=== PATIENT | female | born 1990 | race Caucasian/White ===

== ENCOUNTER 2021-03-29 15:50 | Emergency (ER) | payer OTHER, SELFPAY ==
[2021-03-29 19:12] VITALS: BP 118/70; PULSE 63; RESP 18; TEMP 37.1; O2SAT 97
[2021-03-29 19:21] LABS: MANUAL DIFF FLAG NO
[2021-03-29 19:23] LABS: Basophils Absolute Auto 0.1 X10*3/uL (0.0-0.2); Basophils Percent Auto 0.5 % (0-2); Eosinophils Absolute Auto 0.1 X10*3/uL (0.0-0.4); Hematocrit 36.5 % (37-47); Hemoglobin 12.5 g/dl (12.0-16.0); Imm Gran Abs Auto 0.03 X10*3/uL (0.00-0.03); Imm Gran Pct Auto 0.3 % (0.0-0.4); Lymphocytes Percent Auto 40.5 % (20-40); Mean Corpuscular HGB Conc 34.2 g/dl (31.0-35.0); Mean Corpuscular Volume 84.7 fL (80-98); Mean Platelet Volume 10.2 fL (9.4-12.3); Monocytes Absolute Auto 0.5 X10*3/uL (0.1-1.2); Monocytes Percent Auto 5.3 % (2-11); Neutrophils Absolute Auto 5.2 X10*3/uL (2.0-8.3); Neutrophils Percent Auto 52.4 % (45-73); Platelet Count 262 X10*3/uL (160-400); Red Blood Count 4.31 X10*6/uL (4.20-5.50); Red Cell Distribution Width 12.8 % (11.0-16.0)
[2021-03-29 19:25] LABS: Appearance Urine HAZY; Color Urine YELLOW; Glucose Urine UA NEG (NEG); Leukocyte Esterase Urine 2+ (NEG); Nitrite Urine NEG (NEG); Specific Gravity - Urine 1.015 (1.005-1.025); UACC Culture Trigger YES; Urine Blood NEG (NEG); Urine Ketones NEG (NEG); Urine Protein NEG (NEG-TRACE)
[2021-03-29 19:47] VITALS: BP 119/54; PULSE 62; RESP 16; TEMP 36.8; O2SAT 95; BMI 39.4
[2021-03-29 19:49] LABS: Alanine Aminotransferase 14 U/L (0-31); Albumin Level 4.3 g/dL (3.5-5.0); Alkaline Phosphatase 57 U/L (39-117); Anion Gap 12 (12-20); Aspartate Amino Transferase 12 U/L (5-31); Bilirubin Total < 0.2 mg/dL (0.0-1.0); Blood Urea Nitrogen 9 mg/dL (9-16); Calcium 9.5 mg/dL (8.4-10.2); Carbon Dioxide 26 mmol/L (22-29); Chloride 104 mmol/L (96-108); Estimated Glomerular Filt Rate > 60; Glucose Random 91 mg/dL (60-115); Potassium 4.2 mmol/L (3.3-5.1); Sodium 138 mmol/L (135-145); Total Protein 7.1 g/dL (6.5-8.0)
[2021-03-29 20:08] LABS: HCG Quantitative 20515 mIU/mL
[2021-03-29 21:42] LABS: Amorphous Sediment Urine 1+ /LPF; Bacteria Urine TRACE /LPF; Squamous Epithelial Cell Urine 1+ /LPF
== END 2021-03-29 23:50 | disposition left against medical advice (07) ==
PROVIDERS: Emergency Provider Emergency Medicine; PCP Internal Medicine
DX: R25.2 Cramp and spasm (principal)
CPT/HCPCS: 36415; 80053; 81001; 84702; 85025; 87086; 99282; 99283

== ENCOUNTER 2021-04-02 12:02 | Emergency (ER) | payer OTHER, SELFPAY ==
--- NOTE | ~2021-04-02 | US_ITS ---
EXAMINATION: US OB CLINICAL INFORMATION: Lower abdominal pain. LMP unknown. COMPARISON: 06/30/2012 TECHNIQUE: Sonographic imaging of the pelvis was performed using a transabdominal transducer. FINDINGS: The anteverted, anteflexed measures 10.4 x 6.5 x 7.1 cm (cervix to fundus x AP x transverse dimensions). A single gestational sac is observed within the endometrial cavity. The heart rate is 172 bpm. The estimated crown rump length is 1.98 cm, corresponding to a gestational age of 8 weeks, 4 days, and estimated date of delivery of 11/08/2021. A normal yolk sac is seen. There appears to be a small crescentic subchorionic bleed along the posterosuperior margin of the gestational sac. No pelvic free fluid. The ovaries have normal size and echotexture. No evidence of ectopic . The right ovary measures 3.4 x 2.3 x 2.2 cm and left ovary 3.5 x 1.8 x 2.1 cm. US/US OB <= 14 wk fetus add gest IMPRESSION: * There is a single viable intrauterine gestation. The estimated gestational age is 8 weeks, 4 days with estimated date of delivery of 11/08/2021. * Small subchorionic hemorrhage is noted. * The ovaries are sonographically normal. * No pelvic free fluid.
[2021-04-02 12:07] VITALS: BP 120/70; PULSE 85; RESP 18; TEMP 36.5; O2SAT 99; BMI 39.4
--- NOTE | 2021-04-02 12:43 | ED.ABDPAIN ---
HPI - Abdominal Pain General Chief Complaint: Abdominal Pain Stated Complaint: SHARP PAIN R SIDE Time Seen by Provider: 04/02/21 12:43 Source: patient Mode of arrival: ambulatory Limitations: no limitations History of Present Illness MD elicited complaint: abdominal pain Pertinent past history: other (+ preg test one month ago has not seen OB yet) Onset (ago): day(s) (5) Pain Consistency: intermittent and now resolved Location: R flank and suprapubic Severity: mild Quality: stabbing Radiation: none Migration to: no migration Exacerbating factors: nothing Relieving factors: nothing Associated symptoms: denies other symptoms Related Data Allergies Allergy/AdvReac Type Severity Reaction Status Date / Time No Known Allergies Allergy Verified 03/29/21 19:47 Review of Systems Review of Systems Constitutional : No Weight loss, No Fever, No Chills ENT/Mouth : No sore throat, No Rhinorrhea Eyes: No Swelling, No Redness Cardiovascular : No Chest Pain, No SOB, NoEdema Respiratory : No Cough, No Sputum, No Wheezing Gastrointestinal : no Nausea, no Vomiting, no Diarrhea, positive abdominal Pain, No Hematochezia, No Melena Genitourinary : No Dysuria, No Urinary Frequency, No Hematuria, No Urgency Musculoskeletal : No joint pain, No Myalgias, No Joint Swelling Skin : No Skin Lesions, No rash Neuro : No Weakness, No Numbness, No Dizziness, No Headache Psych : No Anxiety/Panic, No Depression Heme/Lymph: No Bruising, No Lymphadenopathy Endocrine : No Polyuria, No Polydipsia All other systems reviewed and are negative. Physical Exam Vital Signs: Vital Signs: Last Vital Signs Temp 97.7 F 04/02/21 12:07 Pulse 85 04/02/21 12:07 Resp 18 04/02/21 12:07 BP 120/70 04/02/21 12:07 Pulse Ox 99 04/02/21 12:07 Body Mass Index 39.4 Appearance: Alert. Oriented X3. No acute distress. Eyes: Pupils equal, round and reactive to light. ENT: Pharynx normal. Neck: Normal inspection. Neck supple. CVS: Normal heart rate and rhythm. Pulses normal. Respiratory: No respiratory distress. Breath sounds normal. Abdomen: Soft and nontender. no ttp at all to palpation Skin: Skin warm and dry. Normal skin color. Normal skin turgor. Extremities: No lower extremity edema. No calf ttp Neuro: Oriented X 3. No motor deficit. No sensory deficit. Course Course Course Narrative: patient has to leave due to childcare states she cannot give urine at this time MDM - Abdominal Pain MDM Narrative Medical decision making narrative: 30 yo female here with c/o intermittent abdominal pain since Wednesday she has a nontender abdomen at this time - no other GI or symptoms. She notes a positive test 1 month ago had labs and + quant on 03/29 but LWT at this time repeat labs, UA, US to evaluate given the lack of abdominal ttp at this time I do not suspect cholecystitis or appendicitis. Dispo per resutls and findigns. Lab Data Result diagrams: 04/02/21 13:03 04/02/21 13:03 Labs: Lab Results 04/02/21 04/02/21 Range/Units 13:03 13:03 WBC 7.3 (4.8-10.8) X10*3/uL RBC 4.22 (4.20-5.50) X10*6/uL Hgb 12.3 (12.0-16.0) g/dl Hct 35.6 L (37-47) % MCV 84.4 (80-98) fL MCH 29.1 (27.0-33.0) pg MCHC 34.6 (31.0-35.0) g/dl RDW 12.8 (11.0-16.0) % Plt Count 235 (160-400) X10*3/uL MPV 9.9 (9.4-12.3) fL Immature Gran % (Auto) 0.1 (0.0-0.4) % Neut % (Auto) 62.3 (45-73) % Lymph % (Auto) 32.1 (20-40) % [place] % (Auto) 4.5 (2-11) % Eos % (Auto) 0.7 (0-4) % Baso % (Auto) 0.3 (0-2) % Lymph # (Auto) 2.4 (1.2-4.9) X10*3/uL [place] # (Auto) 0.3 (0.1-1.2) X10*3/uL Eos # (Auto) 0.1 (0.0-0.4) X10*3/uL Baso # (Auto) 0.0 (0.0-0.2) X10*3/uL Abs Immat Gran (auto) 0.01 (0.00-0.03) X10*3/uL Absolute Neuts (auto) 4.6 (2.0-8.3) X10*3/uL Absolute Nucleated RBC 0.000 (0.0-0.012) X10*3/uL Nucleated RBC % (auto) 0.0 (0.0-0.2) /100WBC Sodium 137 (135-145) mmol/L Potassium 3.7 (3.3-5.1) mmol/L Chloride 105 (96-108) mmol/L Carbon Dioxide 25 (22-29) mmol/L Anion Gap 11 L (12-20) BUN 7 L (9-16) mg/dL Creatinine 0.62 (0.5-1.4) mg/dL Estim Creat Clear Calc 156.1 Estimated GFR > 60 Random Glucose 91 (60-115) mg/dL Calcium 8.9 D (8.4-10.2) mg/dL Magnesium 2.2 (1.6-2.6) mg/dL Total Bilirubin 0.3 (0.0-1.0) mg/dL Direct Bilirubin 0.2 (0.0-0.5) mg/dL AST 13 (5-31) U/L ALT 15 (0-31) U/L Alkaline Phosphatase 60 (39-117) U/L Total Protein 6.9 (6.5-8.0) g/dL Albumin 4.3 (3.5-5.0) g/dL Lipase 10 (8-78) U/L Discharge Plan Discharge Clinical Impression: Abdominal pain Qualifiers: Abdominal location: lower abdomen, unspecified Qualified Code(s): R10.30 - Lower abdominal pain, unspecified Qualifiers: Weeks of gestation: 8 weeks Qualified Code(s): Z3A.08 - 8 weeks gestation of Patient Disposition: Home, Self-Care Instructions: Abdominal Pain in (ED), Subchorionic Hemorrhage (ED) Additional Instructions: return to ED for any worsening symptoms or concerns PLEASE FIND OB SOON POSSIBLE *? There is a single viable intrauterine gestation. The estimated gestational age is 8 weeks, 4 days with estimated date of delivery of 11/08/2021. *? Small subchorionic hemorrhage is noted. *? The ovaries are sonographically normal. *? No pelvic free fluid.? Stand Alone Forms: Work/School Release FORMERLY [facility], [facility]–1983 Past Medical History Attestation statement: The following information was validated with the patient. Medical History No known health problems Social History Social History (Updated 04/02/21 @ 13:02 by Sylwia Dougherty DO) Alcohol intake: never Patient Tobacco Use Status: Current everyday Tobacco user Use of substances other than those prescribed or required for medical reasons: No Advance Directives: No Advance Directives Information Provided: No Patient : Yes
[2021-04-02 13:08] LABS: MANUAL DIFF FLAG NO
[2021-04-02 13:11] LABS: Basophils Percent Auto 0.3 % (0-2); Eosinophils Absolute Auto 0.1 X10*3/uL (0.0-0.4); Eosinophils Percent Auto 0.7 % (0-4); Hematocrit 35.6 % (37-47); Hemoglobin 12.3 g/dl (12.0-16.0); Imm Gran Abs Auto 0.01 X10*3/uL (0.00-0.03); Imm Gran Pct Auto 0.1 % (0.0-0.4); Lymphocytes Absolute Auto 2.4 X10*3/uL (1.2-4.9); Lymphocytes Percent Auto 32.1 % (20-40); Mean Corpuscular HGB Conc 34.6 g/dl (31.0-35.0); Mean Corpuscular Hemoglobin 29.1 pg (27.0-33.0); Mean Corpuscular Volume 84.4 fL (80-98); Mean Platelet Volume 9.9 fL (9.4-12.3); Monocytes Absolute Auto 0.3 X10*3/uL (0.1-1.2); Monocytes Percent Auto 4.5 % (2-11); Neutrophils Absolute Auto 4.6 X10*3/uL (2.0-8.3); Neutrophils Percent Auto 62.3 % (45-73); Platelet Count 235 X10*3/uL (160-400); Red Blood Count 4.22 X10*6/uL (4.20-5.50); Red Cell Distribution Width 12.8 % (11.0-16.0); White Blood Count 7.3 X10*3/uL (4.8-10.8)
[2021-04-02 13:34] LABS: Alanine Aminotransferase 15 U/L (0-31); Albumin Level 4.3 g/dL (3.5-5.0); Alkaline Phosphatase 60 U/L (39-117); Anion Gap 11 (12-20); Aspartate Amino Transferase 13 U/L (5-31); Bilirubin Direct 0.2 mg/dL (0.0-0.5); Bilirubin Total 0.3 mg/dL (0.0-1.0); Blood Urea Nitrogen 7 mg/dL (9-16); Calcium 8.9 mg/dL (8.4-10.2); Carbon Dioxide 25 mmol/L (22-29); Chloride 105 mmol/L (96-108); Creatinine Clr Calc Pharmacy 156.1; Estimated Glomerular Filt Rate > 60; Glucose Random 91 mg/dL (60-115); Lipase 10 U/L (8-78); Magnesium 2.2 mg/dL (1.6-2.6); Potassium 3.7 mmol/L (3.3-5.1); Sodium 137 mmol/L (135-145); Total Protein 6.9 g/dL (6.5-8.0)
== END 2021-04-02 14:06 | disposition home or self-care (01) ==
PROVIDERS: Emergency Provider Emergency Medicine; PCP Internal Medicine
DX: O26.891 Other specified pregnancy related conditions, first trimester (principal); R10.30 Lower abdominal pain, unspecified; Z3A.08 8 weeks gestation of pregnancy
CPT/HCPCS: 36415; 76801; 76802; 80048; 80076; 83690; 83735; 85025; 99284

== ENCOUNTER 2021-05-12 14:47 | Emergency (ER) | payer OTHER, SELFPAY ==
[2021-05-12 15:23] VITALS: BP 120/61; PULSE 72; RESP 18; TEMP 36.7; O2SAT 100; BMI 38.6
[2021-05-12 15:47] LABS: Appearance Urine CLEAR; Color Urine YELLOW; Glucose Urine UA NEG (NEG); Leukocyte Esterase Urine 1+ (NEG); Nitrite Urine NEG (NEG); Specific Gravity - Urine <= 1.005 (1.005-1.025); UACC Culture Trigger YES; Urine Blood NEG (NEG); Urine Ketones 15 MG/DL (NEG); Urine Protein NEG (NEG-TRACE)
--- NOTE | 2021-05-12 16:16 | ED_ITS ---
HPI - General Adult General Chief complaint: General Medical Stated complaint: uti - Time Seen by Provider: 05/12/21 16:08 Source: patient Mode of arrival: ambulatory Limitations: no limitations History of Present Illness HPI narrative: Patient comes emergency room complaining of dysuria for 2-3 days. Patient denies flank pain, no fever, no hematuria. Patient is a gestational age of 15 weeks. Otherwise, patient is asymptomatic. Related Data Previous Rx's Medication Instructions Recorded nitrofurantoin 100 mg PO Q12H 7 Days #14 cap 05/12/21 monohydrate/macrocrystals 100 mg capsule (Macrobid) Allergies Allergy/AdvReac Type Severity Reaction Status Date / Time No Known Allergies Allergy Verified 05/12/21 15:23 Review of Systems Review of Systems: Constitutional : No Weight loss, No Fever, No Chills, No Night Sweats, No Fatigue, No Malaise ENT/Mouth : No Hearing loss, No Ear Pain, No Nasal Congestion, No Sinus Pain, No Hoarseness, No sore throat, No Rhinorrhea, No Swallowing Difficulty Eyes: No Eye Pain, No Swelling, No Redness, No Foreign Body, No Discharge, No Vision Changes Cardiovascular : No Chest Pain, No SOB, No Dyspnea on Exertion, No Orthopnea, No Edema, No Palpitations Respiratory : No Cough, No Sputum, No Wheezing, No Smoke Exposure, No Dyspnea Gastrointestinal : No Nausea, No Vomiting, No Diarrhea, No Constipation, No abdominal Pain, No Hematochezia, No Melena Genitourinary : no irregular bleeding, complaining of Dysuria, No Urinary Frequency, No Hematuria, No Urinary Incontinence, No Urgency, No Flank Pain, No Urinary Flow Changes, No Hesitancy Musculoskeletal : No joint pain, No Myalgias, No Joint Swelling Skin : No Skin Lesions, No rash Neuro : No Weakness, No Numbness, No Paresthesias, No Loss of Consciousness, No Dizziness, No Headache Psych : No Anxiety/Panic, No Depression, No SI/HI/AH/VH, No Social Issues, Heme/Lymph: No Bruising, No Bleeding,No Lymphadenopathy Endocrine : No Polyuria, No Polydipsia, No Temperature Intolerance PMFSH Past Medical History Medical History COVID-19 Social History Social History (Updated 10/20/21 @ 13:02 by Sylwia Dougherty DO) Alcohol intake: never Patient Tobacco Use Status: Current everyday Tobacco user Advance Directives: No Advance Directives Information Provided: No Patient : Yes Physical Exam Vital Signs: Vital Signs: Last Vital Signs Temp 98.1 F 05/12/21 15:23 Pulse 72 05/12/21 15:23 Resp 18 05/12/21 15:23 BP 120/61 05/12/21 15:23 Pulse Ox 100 05/12/21 15:23 Body Mass Index 38.6 Const: Other: Appearance: Alert. Oriented X3. No acute distress. Eyes: Pupils equal, round and reactive to light. ENT: Pharynx normal. Neck: Normal inspection. Neck supple. No lymph nodes noted. No crepitus CVS: Normal heart rate and rhythm. Pulses normal. Normal S1 and S2 Respiratory: No respiratory distress. Breath sounds normal. No Wheezing. No rales Abdomen: Soft and nontender. No rigidity. No distention. Back: No flank pain Skin: Skin warm and dry. Normal skin color. Normal skin turgor. Extremities: No lower extremity edema. No lower extremity edema. No Lacerations. No Rash Neuro: Oriented X 3. No motor deficit. No sensory deficit. Moving all extermities. No slurred speech. Course Course Course Narrative: Patient's urine is positive for UTI. Patient was given the 1st dose of Macrobid in the emergency room. Patient instructed to follow-up with her primary care physician. Patient will need repeat urinalysis to ensure that the UTI cleared Medical Decision Making Lab Data Labs: Lab Results 05/12/21 Range/Units 15:37 Urine Color YELLOW Urine Appearance CLEAR Urine pH 6.0 (5.0-8.0) Ur Specific [place] <= 1.005 (1.005-1.025) Urine Protein NEG (NEG-TRACE) MG/DL Urine Glucose (UA) NEG (NEG) MG/DL Urine Ketones 15 (NEG) MG/DL Urine Blood NEG (NEG) Urine Nitrite NEG (NEG) Ur Leukocyte Esterase 1+ H (NEG) Discharge Plan Discharge Clinical Impression: UTI (urinary tract infection) during Qualifiers: Trimester: second trimester Qualified Code(s): O23.42 - Unspecified infection of urinary tract in , second trimester Patient Disposition: Home, Self-Care Instructions: Urinary Tract Infection in (ED) Additional Instructions: Please follow-up with your primary care physician tomorrow. If you have any worsening or new symptoms, please return to the emergency room or call 911 Prescriptions: New nitrofurantoin monohyd/m-cryst [Macrobid] 100 mg capsule 100 mg PO Q12H 7 Days Qty: 14 RF: 0
[2021-05-12 16:17] LABS: Bacteria Urine TRACE /LPF; Squamous Epithelial Cell Urine 2+ /LPF
[2021-05-12] MEDS: Nitrofurantoin Monohyd/M-Cryst 100 MG CAPSULE PO (16:37)
== END 2021-05-12 16:40 | disposition home or self-care (01) ==
PROVIDERS: Emergency Provider Emergency Medicine
DX: O23.42 Unspecified infection of urinary tract in pregnancy, second trimester (principal); Z3A.15 15 weeks gestation of pregnancy; Z79.899 Other long term (current) drug therapy
CPT/HCPCS: 81001; 87086; 99283

== ENCOUNTER 2022-01-26 05:18 | Observation (INO) | payer OTHER, SELFPAY ==
--- NOTE | ~2022-01-26 | CT_ITS ---
EXAMINATION: CT HEAD WITHOUT CONTRAST CLINICAL INFORMATION: Altered mental status. Seizure. COMPARISON: 05/06/2011 TECHNIQUE: Contiguous axial imaging was performed from the skull base to vertex without intravenous contrast. This CT examination was performed using dose optimization techniques as appropriate, variously including the following: * Automated exposure control * Adjustment of mA and/or kV according to patient size (this includes techniques or standardized protocols for targeted exams where dose is matched to indication/reason for exam; i.e. extremities or head) Use of iterative reconstruction technique DLP: 665 mGy-cm. FINDINGS: There is no evidence of acute intracranial hemorrhage or territorial infarction. No abnormal mass effect or midline shift is seen. Silverman to white matter differentiation is well preserved. No extra-axial fluid collections are identified. No hydrocephalus. No significant volume loss. There is no abnormal attenuation within the brain parenchyma. The osseous structures and soft tissues are normal. Mild mucoperiosteal thickening of the right maxillary sinus. The mastoid air cells and visualized portions of the paranasal sinuses are otherwise well aerated. CT/CT head/brain wo con IMPRESSION: No acute intracranial pathology.
[2022-01-26 05:28] VITALS: BP 109/58; BP 170/88; PULSE 62; PULSE 78; RESP 18; TEMP 36.8; O2SAT 94; O2SAT 99; BMI 36.6
[2022-01-26 05:40] VITALS: BP 109/58; PULSE 64; RESP 16; TEMP 36.8; O2SAT 95
--- NOTE | 2022-01-26 05:44 | ECG_ITS ---
Test Reason : seizure Blood Pressure : / mmHG Vent. Rate : 073 BPM Atrial Rate : 073 BPM P-R Int : 156 ms QRS Dur : 092 ms QT Int : 394 ms P-R-T Axes : -12 -26 -03 degrees QTc Int : 434 ms Normal sinus rhythm Normal ECG No previous ECGs available Referred By: Sandi Toledo Electronically Signed By:AZAM LEE
--- NOTE | 2022-01-26 05:46 | ED.GENADULT ---
HPI - General Adult General Chief complaint: Seizure Stated complaint: AMS Time Seen by Provider: 01/26/22 05:37 Source: patient and EMS Mode of arrival: EMS Limitations: altered mental status History of Present Illness HPI narrative: Patient comes to the emergency room via EMS for altered mental status. Patient's called today because the patient was found on the floor. Patient states that she does not remember what happened. Patient is still a bit confused, seems postictal. Patient states that she remembers going to the bathroom around 330 in the morning and then she does not remember anything else. Patient reports that she has never had any seizures, denies using alcohol or drugs. Patient denies any pain Related Data Previous Rx's Medication Instructions Recorded nitrofurantoin 100 mg PO Q12H 7 days #14 caps 05/12/21 monohydrate/macrocrystals 100 mg capsule (Macrobid) nitrofurantoin 100 mg PO Q12H 7 days #14 caps 05/13/21 monohydrate/macrocrystals 100 mg capsule (Macrobid) Allergies Allergy/AdvReac Type Severity Reaction Status Date / Time No Known Allergies Allergy Verified 05/12/21 15:23 Review of Systems Review of Systems: Constitutional : No Weight loss, No Fever, No Chills, No Night Sweats, No Fatigue, No Malaise ENT/Mouth : No Hearing loss, No Ear Pain, No Nasal Congestion, No Sinus Pain, No Hoarseness, No sore throat, No Rhinorrhea, No Swallowing Difficulty Eyes: No Eye Pain, No Swelling, No Redness, No Foreign Body, No Discharge, No Vision Changes Cardiovascular : No Chest Pain, No SOB, No Dyspnea on Exertion, No Orthopnea, No Edema, No Palpitations Respiratory : No Cough, No Sputum, No Wheezing, No Smoke Exposure, No Dyspnea Gastrointestinal : No Nausea, No Vomiting, No Diarrhea, No Constipation, No abdominal Pain, No Hematochezia, No Melena Genitourinary : no irregular bleeding, No Dysuria, No Urinary Frequency, No Hematuria, No Urinary Incontinence, No Urgency, No Flank Pain, No Urinary Flow Changes, No Hesitancy Musculoskeletal : No joint pain, No Myalgias, No Joint Swelling Skin : No Skin Lesions, No rash Neuro : No Weakness, No Numbness, No Paresthesias, unknown seizure versus loss of consciousness, no headache Psych : No Anxiety/Panic, No Depression, No SI/HI/AH/VH, No Social Issues, Heme/Lymph: No Bruising, No Bleeding,No Lymphadenopathy Endocrine : No Polyuria, No Polydipsia, No Temperature Intolerance [facility] Past Medical History Medical History COVID-19 Social History Social History (Updated 04/02/21 @ 13:02 by Daniela Dougherty DO) Alcohol intake: current Alcohol intake frequency: holidays/special occasions only Patient Tobacco Use Status: Current everyday Tobacco user Use of substances other than those prescribed or required for medical reasons: Yes Substance Use Type: Marijuana Substance Use Frequency: Daily Advance Directives: No Advance Directives Information Provided: No Patient : No Physical Exam ED Vital Signs: Vital Signs - 24 hr 01/26/22 05:28 01/26/22 05:40 Temperature 98.3 F 98.3 F Pulse Rate 62 64 Respiratory Rate 18 16 Blood Pressure 109/58 L 109/58 L Pulse Oximetry 94 95 Oxygen Delivery Method Room Air Room Air BMI result Body Mass Index 36.6 Const Other: Appearance: Alert. Oriented X3. No acute distress. At times patient seems confused, postictal Eyes: Pupils equal, round and reactive to light. ENT: Pharynx normal there is scant dry blood around the nostrils and mouth bilateral, no active bleeding, no loose teeth. Tympanic membranes within normal limits, no hemotympanum bilaterally Neck: Normal inspection. Neck supple. No lymph nodes noted. No crepitus, no palpable step-offs, normal range of motion CVS: Normal heart rate and rhythm. Pulses normal. Normal S1 and S2 Respiratory: No respiratory distress. Breath sounds normal. No Wheezing. No rales Abdomen: Soft and nontender. No rigidity. No distention. Skin: Skin warm and dry. Normal skin color. Normal skin turgor. Extremities: No lower extremity edema. No Lacerations. No Rash Neuro: Oriented X 3. No motor deficit. No sensory deficit. Moving all extremities. No slurred speech. CN 2 through 12 grossly intact Psych: calm, cooperative, normal affect Course Course Course Narrative: All of the patient's labs are pending. CT scan is negative for any acute pathology. So far, white blood cell count is within normal limits, lactic acid is normal, D-dimer is negative. Unlikely that the patient had a seizure. Urine toxicology and troponin are pending Wells criteria for pulmonary embolism score is 0 Sign-out given to Dr. Dougherty Medical Decision Making Lab Data Result diagrams: 01/26/22 06:19 01/26/22 06:19 Labs: Lab Results 01/26/22 01/26/22 01/26/22 Range/Units 06:19 06:20 06:20 WBC 7.7 (4.8-10.8) X10*3/uL RBC 4.71 (4.20-5.50) X10*6/uL Hgb 13.3 (12.0-16.0) g/dl Hct 40.8 (37.0-47.0) % MCV 86.6 (80.0-98.0) fL MCH 28.2 (27.0-33.0) pg MCHC 32.6 (31.0-35.0) g/dl RDW 13.2 (11.0-16.0) % Plt Count 267 (160-400) X10*3/uL MPV 10.1 (9.4-12.3) fL Immature Gran % (Auto) 0.3 (0.0-0.4) % Neut % (Auto) 69.1 (45-73) % Lymph % (Auto) 25.3 (20-40) % [place] % (Auto) 3.8 (2-11) % Eos % (Auto) 1.0 (0-4) % Baso % (Auto) 0.5 (0-2) % Lymph # (Auto) 2.0 (1.2-4.9) X10*3/uL [place] # (Auto) 0.3 (0.1-1.2) X10*3/uL Eos # (Auto) 0.1 (0.0-0.4) X10*3/uL Baso # (Auto) 0.0 (0.0-0.2) X10*3/uL Abs Immat Gran (auto) 0.02 (0.00-0.03) X10*3/uL Absolute Neuts (auto) 5.3 (2.0-8.3) x10*3/uL Absolute Nucleated RBC 0.000 (0.0-0.012) X10*3/uL Nucleated RBC % (auto) 0.0 (0.0-0.2) /100WBC D-Dimer High Sensitivty < 150 NG/ML Lactic Acid 1.2 (0.5-2.0) mmol/L Imaging Data Chest x-ray: Radiologist's impression: FINDINGS: There is no evidence of acute intracranial hemorrhage or territorial infarction. No abnormal mass effect or midline shift is seen. [place] to white matter differentiation is well preserved. No extra-axial fluid collections are identified. No hydrocephalus. No significant volume loss. There is no abnormal attenuation within the brain parenchyma. The osseous structures and soft tissues are normal. Mild mucoperiosteal thickening of the right maxillary sinus. The mastoid air cells and visualized portions of the paranasal sinuses are otherwise well aerated. ? CT/CT head/brain wo con IMPRESSION: No acute intracranial pathology. Discharge Plan Discharge Clinical Impression: Altered mental status Patient Disposition: Still a Patient Prescriptions: No Action nitrofurantoin monohyd/m-cryst [Macrobid] 100 mg capsule 100 mg PO Q12H 7 Days Qty: 14 0RF Rx Instructions: must administer with a meal/food nitrofurantoin monohyd/m-cryst [Macrobid] 100 mg capsule 100 mg PO Q12H 7 Days Qty: 14 0RF Rx Instructions: must administer with a meal/food
[2022-01-26 06:27] LABS: MANUAL DIFF FLAG NO
[2022-01-26 06:34] LABS: Basophils Percent Auto 0.5 % (0-2); Eosinophils Absolute Auto 0.1 X10*3/uL (0.0-0.4); Hematocrit 40.8 % (37.0-47.0); Hemoglobin 13.3 g/dl (12.0-16.0); Imm Gran Abs Auto 0.02 X10*3/uL (0.00-0.03); Imm Gran Pct Auto 0.3 % (0.0-0.4); Lymphocytes Percent Auto 25.3 % (20-40); Mean Corpuscular HGB Conc 32.6 g/dl (31.0-35.0); Mean Corpuscular Hemoglobin 28.2 pg (27.0-33.0); Mean Corpuscular Volume 86.6 fL (80.0-98.0); Mean Platelet Volume 10.1 fL (9.4-12.3); Monocytes Absolute Auto 0.3 X10*3/uL (0.1-1.2); Monocytes Percent Auto 3.8 % (2-11); Neutrophils Absolute Auto 5.3 x10*3/uL (2.0-8.3); Neutrophils Percent Auto 69.1 % (45-73); Platelet Count 267 X10*3/uL (160-400); Red Blood Count 4.71 X10*6/uL (4.20-5.50); Red Cell Distribution Width 13.2 % (11.0-16.0); White Blood Count 7.7 X10*3/uL (4.8-10.8)
[2022-01-26] MEDS: 0.9 % Sodium Chloride 1,000 ML 999 ML IVCONT (06:37)
[2022-01-26 06:38] LABS: Lactic Acid 1.2 mmol/L (0.5-2.0)
[2022-01-26 06:39] LABS: D Dimer High Sensitivity < 150 NG/ML
[2022-01-26 06:40] LABS: Ethanol < 10 mg/dL
[2022-01-26 06:42] LABS: COVID-19 Test Negative (Negative)
[2022-01-26 06:43] LABS: Alanine Aminotransferase 15 U/L (0-31); Albumin Level 4.2 g/dL (3.5-5.0); Alkaline Phosphatase 69 U/L (39-117); Anion Gap 13 (12-20); Aspartate Amino Transferase 12 U/L (5-31); Bilirubin Direct < 0.2 mg/dL (0.0-0.5); Bilirubin Total 0.2 mg/dL (0.0-1.0); Blood Urea Nitrogen 14 mg/dL (9-16); Calcium 8.9 mg/dL (8.4-10.2); Carbon Dioxide 25 mmol/L (22-29); Chloride 106 mmol/L (96-108); Creatinine Clr Calc Pharmacy 136.2; Estimated Glomerular Filt Rate > 60; Glucose Random 98 mg/dL (60-115); Magnesium 2.1 mg/dL (1.6-2.6); Potassium 4.9 mmol/L (3.3-5.1); Sodium 139 mmol/L (135-145); Total Protein 7.1 g/dL (6.5-8.0)
[2022-01-26 06:44] LABS: Appearance Urine CLEAR; Color Urine YELLOW; Glucose Urine UA NEG (NEG); Leukocyte Esterase Urine NEG (NEG); Nitrite Urine NEG (NEG); PH 5.5 (5.0-8.0); Specific Gravity - Urine >= 1.030 (1.005-1.025); UACC Culture Trigger NO; Urine Blood 2+ (NEG); Urine Ketones NEG (NEG); Urine Protein NEG (NEG-TRACE)
[2022-01-26 06:46] LABS: Troponin-I High Sensitivity < 3.5 ng/L (<3.5-17.0)
[2022-01-26 06:49] LABS: HCG Quantitative < 2 mIU/mL
[2022-01-26 06:53] LABS: Bacteria Urine 2+ /LPF; Mucus Urine 2+ /LPF; Squamous Epithelial Cell Urine 2+ /LPF
[2022-01-26 07:00] LABS: Amphetamine Screen Urine Not Detected (Not Detect); Barbiturates, Urine Not Detected (Not Detect); Benzodiazepines Screen Urine Not Detected (Not Detect); Cannabinoid Screen Urine POSITIVE (Not Detect); Cocaine Screen Urine POSITIVE (Not Detect); Fentanyl, urine Not Detected (Not Detect); Opiate Screen Urine Not Detected (Not Detect); Phencyclidine Screen Urine POSITIVE (Not Detect)
--- NOTE | 2022-01-26 07:05 | PC.NURSE ---
shift stacker security team lead walking by patents room alerted this RN and Brittny RN to patient looking weird . immediately myself and nurse at bedside , patient in position , appeared to be holding breath , blueish / hypoxic color to skin and obtunded o2 at room air was 85-87 . Immediately repositioned patient in high fowlers and placed patient on oxygen . MD Herve Dougherty at bedside .. patient color began to immediately improve after repositioning and implementation of o2 . levels increased to 89-95 . Versed 2mls IVP . As patient began to become more awake she became more incoherent and aggressive .trying to ripe out both her oxygen and her IV . patient repeatedly redirected with no positive effect . MD ordered soft restraints at 0730 . 2ml of versed administered at 0735 as ordered . patient continued on continuous cardiac monitoring . patients soft restraints d/c at 0800 when patient became coherent and non aggressive . patient continues on medical records coder at this time . patient aware of plan of care .
[2022-01-26] MEDS: Midazolam HCl/PF 2 MG/2 ML VIAL IVPUSH ×2 (07:16→07:35)
--- NOTE | 2022-01-26 07:57 | PHA.MEDREC ---
Pharmacy Consult ? Medication Reconciliation Pharmacy has completed the medication reconciliation.
--- NOTE | 2022-01-26 08:48 | PM.IMHP ---
History of Present Illness Date of Service: 01/26/22 Attending physician on admission: Rafa [facility] Chief Complaint: seizure/pcp intoxication 31 year old female without significant medical history presented to ED via EMS early this morning after seun Josue, found her on the floor with AMS. Patient admits to partying last night with a friend consuming 3 smirnoff beverages and using cocaine and marijuana. Last use was around 8pm. She does use marijuana on a regular basis but does not regularly consume alcohol or do other drugs. In the ED tox screen was positive for cocaine, THC, PCP. On arrival, ED staff note patient was post ictal appearing, somewhat confused. She does not recall being found on the floor or being brought into the hospital. While in the ED, she appears to have had two generalized seizures where she was thrashing and clamped down, purple in color. She was given IV versed and keppra. Her fiance states she did have seizure like activity x1 over the winter but did not seek treatment or neuro eval. No other known history of seizures. In ED, head ct was without acute intracranial abnormality. Heme studies and chemistries were unremarkble. Has taken 4 days of nitrofurantoin at home for UTI. UA positive for 2+ blood, negative for leuks and nitrites. Review of Systems Review of Systems: General: No fevers, malaise, unintentional weight loss HEENT: No blurred vision or diplopia Cardiovascular: No chest pain, palpitations, or leg edema Respiratory: No shortness of breath, wheezing, cough GI: No abdominal pain, nausea, vomiting, diarrhea Neuro: +aggitation, +seizure. No headaches, weakness, paresthesias. Psych: +drug/alcohol use. No VH/AH Skin: No rashes or lesions [facility] Medical History (Updated 01/26/22 @ 09:01 by DEJAH Lieberman) COVID-19 Depression Family History (Updated 01/26/22 @ 09:42 by DEJAH Lieberman) Mother Alcohol abuse Drug abuse and dependence Father Drug abuse and dependence Alcohol abuse Maternal Grandfather Cancer of unknown origin Paternal Grandmother Lung cancer Social History (Updated 04/02/21 @ 13:02 by Daniela Dougherty DO) Alcohol intake: current Alcohol intake frequency: holidays/special occasions only Patient Tobacco Use Status: Current everyday Tobacco user Use of substances other than those prescribed or required for medical reasons: Yes Substance Use Type: Marijuana Substance Use Frequency: Daily Advance Directives: No Advance Directives Information Provided: No Patient : No Meds Allergies Allergy/AdvReac Type Severity Reaction Status Date / Time No Known Allergies Allergy Verified 05/12/21 15:23 Active Medications: Current Medications Famotidine (Famotidine/Pf 20 Mg/2 Ml Vial) 20 mg IVPUSH ONCE ONE Stop: 01/26/22 08:48 Sodium Chloride (Ns) 1,000 mls @ 100 mls/hr IVCONT .Q10H [facility] Ondansetron HCl (Ondansetron Hcl 4 Mg/2 Ml Vial) 4 mg IVPUSH ONCE ONE Stop: 01/26/22 08:48 Pharmacy Consult (Consult Rx Perform Med Rec) 1 each MISCELLANE ONCE PRN PRN Reason: Consult order Sodium Chloride (0.9 % Sodium Chloride Flush 3 Ml Syringe) 3 ml IVFLUSH QSHIFT ED[facility] Home Medications Medication Instructions Recorded Confirmed Last Taken Type No Known Home Meds 01/26/22 01/26/22 Unknown History Physical Exam Vital Signs and Narrative: Vital Signs: Last Vital Signs Temp 98.3 F 01/26/22 05:40 Pulse 64 01/26/22 05:40 Resp 16 01/26/22 05:40 BP 109/58 L 01/26/22 05:40 Pulse Ox 95 01/26/22 05:40 O2 Del Method 01/26/22 05:40 BMI result Body Mass Index 36.6 Constitutional - Awake and Alert, No apparent distress Eyes - PERRLA, EOMI Cardiovascular - S1S2, RRR, No edema Respiratory - Normal lung expansion, Normal respiratory effort, No respiratory distress, CTA bilaterally Gastrointestinal - NT / ND; +BS; No rebound or guarding Extremities - no calf tenderness bilaterally, no swelling Musculoskeletal - Normal inspection, normal ROM Skin - Warm/Dry Neurological - Alert & oriented x3, No focal deficit Psychological- aggitated, appropriate affect, no hallucinations Results Labs CBC and Chem 7: 01/26/22 06:19 01/26/22 06:19 Labs: Laboratory Results - last 24 hr 01/26/22 01/26/22 01/26/22 06:19 06:19 06:20 MCV 86.6 MCH 28.2 MCHC 32.6 RDW 13.2 Plt Count 267 MPV 10.1 Immature Gran % (Auto) 0.3 Neut % (Auto) 69.1 Lymph % (Auto) 25.3 Quay % (Auto) 3.8 Eos % (Auto) 1.0 Baso % (Auto) 0.5 Lymph # (Auto) 2.0 Quay # (Auto) 0.3 Eos # (Auto) 0.1 Baso # (Auto) 0.0 Abs Immat Gran (auto) 0.02 Absolute Neuts (auto) 5.3 Absolute Nucleated RBC 0.000 Nucleated RBC % (auto) 0.0 D-Dimer High Sensitivty Anion Gap 13 Estim Creat Clear Calc 136.2 Estimated GFR > 60 Random Glucose 98 Lactic Acid 1.2 Calcium 8.9 Magnesium 2.1 Total Bilirubin 0.2 Direct Bilirubin < 0.2 AST 12 ALT 15 Alkaline Phosphatase 69 Total Protein 7.1 Albumin 4.2 Beta HCG, Quant < 2 Urine Color Urine Appearance Urine pH Ur Specific [place] Urine Protein Urine Glucose (UA) Urine Ketones Urine Blood Urine Nitrite Ur Leukocyte Esterase Urine RBC Urine WBC Ur Squamous Epith Cells Urine Bacteria Urine Mucus Urine Opiates Screen Urine Fentanyl Screen Ur Barbiturates Screen Ur Phencyclidine Scrn Ur Amphetamines Screen U Benzodiazepines Scrn Urine Cocaine Screen U Marijuana (THC) Screen Ethyl Alcohol COVID-19 (BRITTNEY) COVID-19 Clin Com 01/26/22 01/26/22 01/26/22 06:20 06:20 06:20 MCV MCH MCHC RDW Plt Count MPV Immature Gran % (Auto) Neut % (Auto) Lymph % (Auto) Quay % (Auto) Eos % (Auto) Baso % (Auto) Lymph # (Auto) Quay # (Auto) Eos # (Auto) Baso # (Auto) Abs Immat Gran (auto) Absolute Neuts (auto) Absolute Nucleated RBC Nucleated RBC % (auto) D-Dimer High Sensitivty < 150 Anion Gap Estim Creat Clear Calc Estimated GFR Random Glucose Lactic Acid Calcium Magnesium Total Bilirubin Direct Bilirubin AST ALT Alkaline Phosphatase Total Protein Albumin Beta HCG, Quant Urine Color Urine Appearance Urine pH Ur Specific [place] Urine Protein Urine Glucose (UA) Urine Ketones Urine Blood Urine Nitrite Ur Leukocyte Esterase Urine RBC Urine WBC Ur Squamous Epith Cells Urine Bacteria Urine Mucus Urine Opiates Screen Urine Fentanyl Screen Ur Barbiturates Screen Ur Phencyclidine Scrn Ur Amphetamines Screen U Benzodiazepines Scrn Urine Cocaine Screen U Marijuana (THC) Screen Ethyl Alcohol < 10 COVID-19 (BRITTNEY) Negative COVID-19 Clin Com See Note 01/26/22 01/26/22 06:34 06:34 MCV MCH MCHC RDW Plt Count MPV Immature Gran % (Auto) Neut % (Auto) Lymph % (Auto) Quay % (Auto) Eos % (Auto) Baso % (Auto) Lymph # (Auto) Quay # (Auto) Eos # (Auto) Baso # (Auto) Abs Immat Gran (auto) Absolute Neuts (auto) Absolute Nucleated RBC Nucleated RBC % (auto) D-Dimer High Sensitivty Anion Gap Estim Creat Clear Calc Estimated GFR Random Glucose Lactic Acid Calcium Magnesium Total Bilirubin Direct Bilirubin AST ALT Alkaline Phosphatase Total Protein Albumin Beta HCG, Quant Urine Color YELLOW Urine Appearance CLEAR Urine pH 5.5 Ur Specific [place] >= 1.030 H Urine Protein NEG Urine Glucose (UA) NEG Urine Ketones NEG Urine Blood 2+ H Urine Nitrite NEG Ur Leukocyte Esterase NEG Urine RBC 1-4 Urine WBC 1-4 Ur Squamous Epith Cells 2+ Urine Bacteria 2+ Urine Mucus 2+ Urine Opiates Screen Not Detected Urine Fentanyl Screen Not Detected Ur Barbiturates Screen Not Detected Ur Phencyclidine Scrn POSITIVE H Ur Amphetamines Screen Not Detected U Benzodiazepines Scrn Not Detected Urine Cocaine Screen POSITIVE H U Marijuana (THC) Screen POSITIVE H Ethyl Alcohol COVID-19 (BRITTNEY) COVID-19 Clin Com Imaging Radiologist's Impressions: Impressions Head CT 01/26/22 06:00 IMPRESSION: No acute intracranial pathology. Assessment and Plan (1) PCP intoxication: Qualifiers: Complication of substance-induced condition: uncomplicated Qualified Code(s): F16.920 - Hallucinogen use, unspecified with intoxication, uncomplicated Status: Acute (2) Generalized seizure: Status: Acute Plan 31 year old female without significant history with seizure activity following PCP intoxication and cocaine to be observed in the hospital overnight. 1-Generalized seizures- likely secondary to pcp use, stable at this time -Has received 1g keppra and versed x 3 ED -Question of possible seizure 8 months ago reported by seun, not substance induced. Neuro consult ordered -Continue Keppra BID and versed prn 2-PCP intoxication and cocaine use- not a regular user -Counseling offered 3-UTI- treated outpatient with macrobid x4days -Continue macrobid x1 day 4-Tobacco abuse -Counseling offered -Nicorette lozenges ordered DVT prophylaxis- mechanical and ambulation Full code Quality Stroke Does the patient have a stroke diagnosis?: No VTE Prior VTE?: No VTE Risk Level:: Medical - moderate - high VTE Device Contraindication: N/A - Device Ordered VTE Drug Contraindication: Treatment Not Indicated
[2022-01-26] MEDS: Famotidine/PF 20 MG/2 ML VIAL IVPUSH (10:32)
[2022-01-26] MEDS: ondansetron HCL 4 MG/2 ML VIAL IVPUSH (10:32)
[2022-01-26] MEDS: levETIRAcetam in NaCl (iso-os) 1,000 MG/100 ML PIGGYBACK 400 MG IV (10:51)
[2022-01-26] MEDS: Lactated Ringers 1,000 ML 999 ML IV (10:54)
[2022-01-26 10:58] VITALS: BP 105/49; PULSE 73; RESP 14; TEMP 37.2; O2SAT 94
--- NOTE | 2022-01-26 12:02 | PM.NEUROCN ---
History of Present Illness Data of Consult Service Date: 01/26/22 Primary Care Provider: Unknown Physician HPI Reason for consult: Generalized seizure 31 years old woman who came to hospital with change in mental status and apparently had 2 generalized convulsions in emergency room. She was noted to be confused when she arrived and her tox screen was positive for cocaine and marijuana. Apparently she also had taken alcohol. She told me that she had similar situation of while ago but could not tell me when exactly. Review of Systems Review of Systems: Active alcohol drinking and drug use [facility] Past Medical History Medical History (Updated 01/26/22 @ 09:01 by DEJAH Lieberman) COVID-19 Depression Family History Family History (Updated 01/26/22 @ 09:42 by DEJAH Lieberman) Mother Alcohol abuse Drug abuse and dependence Father Drug abuse and dependence Alcohol abuse Maternal Grandfather Cancer of unknown origin Paternal Grandmother Lung cancer Social History Social History (Updated 04/02/21 @ 13:02 by Daniela Dougherty DO) Alcohol intake: current Alcohol intake frequency: holidays/special occasions only Patient Tobacco Use Status: Current everyday Tobacco user Use of substances other than those prescribed or required for medical reasons: Yes Substance Use Type: Marijuana Substance Use Frequency: Daily Advance Directives: No Advance Directives Information Provided: No Patient : No Meds Allergies Allergy/AdvReac Type Severity Reaction Status Date / Time No Known Allergies Allergy Verified 05/12/21 15:23 Active Medications: Current Medications Acetaminophen (Acetaminophen 325 Mg Tablet) 650 mg PO Q6H PRN PRN Reason: Headache Sodium Chloride (Ns) 1,000 mls @ 100 mls/hr IVCONT .Q10H [facility] Levetiracetam 500 mg/ Sodium (Chloride) 105 mls @ 410 mls/hr IV Q12H [facility] Midazolam HCl (Midazolam Hcl/Pf 2 Mg/2 Ml Vial) 2 mg IVPUSH Q15M PRN PRN Reason: Seizures Nicotine Polacrilex (Nicotine Polacrilex 2 Mg Gum) 2 mg BUCCAL Q2H PRN PRN Reason: smoking cessation- cravings Pharmacy Consult (Consult Rx Perform Med Rec) 1 each MISCELLANE ONCE PRN PRN Reason: Consult order Sodium Chloride (0.9 % Sodium Chloride Flush 3 Ml Syringe) 3 ml IVFLUSH QSHIFT [facility] Home Medications Medication Instructions Recorded Confirmed Last Taken Type No Known Home Meds 01/26/22 01/26/22 Unknown History Physical Exam Vital Signs: Vital Signs: Last Vital Signs Temp 98.9 F 01/26/22 10:58 Pulse 73 01/26/22 10:58 Resp 14 01/26/22 10:58 BP 105/49 L 01/26/22 10:58 Pulse Ox 94 01/26/22 10:58 O2 Del Method 01/26/22 10:58 BMI result Body Mass Index 36.6 Neuro: Other: She sleeping but I was able to wake her up. She was resistant to examination but answered simple questions and follow simple commands. Face was symmetrical. Visual gama are full. There was no obvious focal arm or leg weakness and plantars were flat. Results Labs CBC & Chem 7: 01/26/22 06:19 01/26/22 06:19 Labs: Short CBC 01/26/22 Range/Units 06:19 WBC 7.7 (4.8-10.8) X10*3/uL Hgb 13.3 (12.0-16.0) g/dl Hct 40.8 (37.0-47.0) % Plt Count 267 (160-400) X10*3/uL BMP 01/26/22 06:19 Sodium 139 Potassium 4.9 D Chloride 106 Carbon Dioxide 25 BUN 14 Creatinine 0.70 Calcium 8.9 Liver Function 01/26/22 Range/Units 06:19 Total Bilirubin 0.2 (0.0-1.0) mg/dL Direct Bilirubin < 0.2 (0.0-0.5) mg/dL AST 12 (5-31) U/L ALT 15 (0-31) U/L Alkaline Phosphatase 69 (39-117) U/L Albumin 4.2 (3.5-5.0) g/dL Urine 01/26/22 Range/Units 06:34 Urine Color YELLOW Urine Appearance CLEAR Urine pH 5.5 (5.0-8.0) Ur Specific [place] >= 1.030 H (1.005-1.025) Urine Protein NEG (NEG-TRACE) MG/DL Urine Glucose (UA) NEG (NEG) MG/DL Noncontrast head CT did not reveal any significant abnormality Assessment and Plan (1) Generalized seizure: Status: Acute 31 years old woman with polydrug abuse including alcohol, marijuana and cocaine. She came to hospital with confusion and had generalized convulsions. Examination was nonfocal and head CT was okay. Tox screen was positive for marijuana and cocaine. At this time mainstay of management is complete avoidance of drug of abuse including alcohol. An EEG is also recommended to rule out any underlying tendency for epilepsy Procedures Date of Service Date of Service: 01/26/22
--- NOTE | 2022-01-26 13:28 | MHC.RECOVSUP ---
? Reason for consult:Recovery Support o Current location:ED-18 o Identified substance use concern:Cocaine,PCP,Marijuana - Support ? Intervention: o Harm reduction discussion ? Plan: o Patient to follow up with [facility] after discharge ? Additional information:Patient does not use often, does not want detox or anything else.
--- NOTE | 2022-01-26 13:33 | PC.NURSE ---
diving coach - jeremiah is at bedside, pt aware of plan of care. pt is very apologetic about her behavior this am which she states that she does not remember. pt a/o x 4 no sob/hasmukh noted, no n/v noted. amb (i) gait steady on cellphone/facetime with girlfriend as she ambulate (i) gait to the bathroom and btb.
[2022-01-26 15:03] VITALS: BP 100/48; PULSE 85; RESP 16; TEMP 36.7; O2SAT 94
--- NOTE | 2022-01-26 15:49 | PM.EVENT ---
Event Note Date of Service: 01/26/22 Event Note: Patient requesting to leave AMA around 1530 today. Went and spoke with the patient. She states she has no recollection of this morning or had two seizure episodes while in the ED. We did discuss this when I was admitting her but she does not recall meeting with me either. Seems to have experienced a period of drug induced amnesia which could be ongoing. We discussed that she is still at risk for further seizure activity, amnesic episodes, and confusion. She is agreeable to staying overnight for monitoring. She may request to leave AMA again and should be reminded of these things due to amnesia
[2022-01-26] MEDS: 0.9 % Sodium Chloride 1,000 ML 100 ML IVCONT (17:41)
[2022-01-26 17:43] VITALS: BP 110/57; PULSE 63; RESP 16; TEMP 37.1; O2SAT 94
[2022-01-26] MEDS: 0.9 % Sodium Chloride Flush 3 ML SYRINGE IVFLUSH (18:10)
[2022-01-26 21:00] VITALS: BP 102/55; PULSE 58; RESP 17; TEMP 36.2; O2SAT 95
[2022-01-26] MEDS: hydrOXYzine HCL 25 MG TABLET PO (22:17)
[2022-01-27] MEDS: 0.9 % Sodium Chloride 1,000 ML 100 ML IVCONT (00:06)
[2022-01-27 03:34] VITALS: BP 105/59; PULSE 59; RESP 20; TEMP 36.6; O2SAT 91
--- NOTE | 2022-01-27 06:02 | PC.NURSE ---
pt refused iv fluids running she said i dont need it, and im going home in few hours i can drink then. and if this iv hurt me im going to rip it out notified .
[2022-01-27 07:59] VITALS: BP 100/58; PULSE 56; RESP 16; TEMP 36.4; O2SAT 97
--- NOTE | 2022-01-27 08:58 | MHC.CM.PN ---
YOBANI addressed, yellow copy to patient and white copy filed in patient's chart. Patient reports she lives with her fiance and family. She is independent at home and community, denies DME use and home services. She is Not Covid vax'd, Will see New PCP from [facility] in [place]-unable to remember PCP's name. Patient was educated regarding HCP, she declined to complete one at this time. She will need transportation assist home ([employer]) but can also walk home. D/C Plan: Home (self-care) vs Care Team Recommendation.
[2022-01-27] MEDS: 0.9 % Sodium Chloride Flush 3 ML SYRINGE IVFLUSH (09:21)
--- NOTE | 2022-01-27 09:47 | P.DS_ITS ---
DS: Providers Provider Date of Service: 01/27/22 Date of admission: 01/26/22 08:33 Date of discharge: 01/27/22 Primary care physician: Unknown Physician Consults: 01/26/22 08:38 Consult to Neurology Routine Consulting Provider: [facility] Reason for consultation: seizure activity, pcp intoxication Has provider been notified: No 01/26/22 14:03 Consult to Care Team Routine Comment: Reason for consultation: +drug screen Attending physician on discharge: [facility] Discharging clinician: Zaira Lyons DS: Diagnosis Discharge Diagnosis (1) Generalized seizure: Status: Acute (2) PCP intoxication: Status: Acute (3) Retrograde amnesia: Status: Acute (4) Cocaine use: Status: Acute DS: Summary Hospital Course Hospital Course: HPI on admission: 31 year old female without significant medical history presented to ED via EMS early this morning after Josue kohli, found her on the floor with AMS. Patient admits to partying last night with a friend consuming 3 smirnoff beverages and using cocaine and marijuana. Last use was around 8pm. She does use marijuana on a regular basis but does not regularly consume alcohol or do other drugs. In the ED tox screen was positive for cocaine, THC, PCP. On arrival, ED staff note patient was post ictal appearing, somewhat confused. She does not recall being found on the floor or being brought into the hospital. While in the ED, she ap pears to have had two generalized seizures where she was thrashing and clamped down, purple in color. She was given IV versed and keppra. Her fiance states she did have seizure like activity x1 over the winter but did not seek treatment or neuro eval. No other known history of seizures.? In ED, head ct was without acute intracranial abnormality. Heme studies and chemistries were unremarkble. Has taken 4 days of nitrofurantoin at home for UTI. UA positive for 2+ blood, negative for leuks and nitrites. Hospital Course: Patient observed overnight following at least 2 generalized seizure episodes with altered mental status on arrival following night of alcohol consumption, pcp use, and cocaine. Patient is not a regular consumer of alcohol or illicit drug abuser. Was seen by recovery team given drug use and was not felt to need and patient did not want detox. Advised to follow up with [facility] outpatient. Patient initially argumentative and aggitated but this resolved once admitted and she was apologetic, agreeable,a nd pleasant. Patient remained A&O x3 once admitted but did request multiple times to leave AMA and had to be reminded of seizure activity. Appears to have experienced retrograde amnesia secondary to drug use. Grace brought up an episode of seizure activity that occurred about 8 months ago. Consulted by neuro and should follow up outpatient for evaluation and EEG study. EEG ordered. No driving unless seizure free for 6 months or evaluated and cleared by neurology. NRT declined by patient at discharge, will try cold turkey. Counseled on risks of ongoing smoking and benefits of quitting. Time spent discussing smoking cessation with patient: 3 to 10 minutes Status at Discharge Overall status at discharge: patient is back to baseline Time Spent with Patient Time attestation: Total time spent providing and/or coordinating discharge services: Discharge coordination time: Greater than 30 minutes Quality: Safe Use of Opioids Does Pt have an Active Cancer Diagnosis on the Problem List?: No Quality: Stroke Does the patient have a stroke diagnosis?: No Physical Exam Vital Signs: Vital Signs: Last Vital Signs Temp 97.5 F 01/27/22 07:59 Pulse 56 01/27/22 07:59 Resp 16 01/27/22 07:59 BP 100/58 L 01/27/22 07:59 Pulse Ox 97 01/27/22 07:59 O2 Del Method 01/27/22 07:59 BMI result Body Mass Index 36.6 Constitutional - Awake and Alert, No apparent distress Eyes - PERRLA, EOMI Cardiovascular - S1S2, RRR, No edema Respiratory - Normal lung expansion, Normal respiratory effort, No respiratory distress, CTA bilaterally Extremities - no calf tenderness bilaterally, no swelling Skin - Warm/Dry Neurological - Alert & oriented x3, No focal deficit Psychological - Appropriate affect DS: Data Data Completed and Pending Completed studies during hospitalization [Text1]: WBC 7.7 X10*3/uL (4.8-10.8) 01/26/22 06:19 RBC 4.71 X10*6/uL (4.20-5.50) 01/26/22 06:19 Hgb 13.3 g/dl (12.0-16.0) 01/26/22 06:19 Hct 40.8 % (37.0-47.0) 01/26/22 06:19 MCV 86.6 fL (80.0-98.0) 01/26/22 06:19 MCH 28.2 pg (27.0-33.0) 01/26/22 06:19 MCHC 32.6 g/dl (31.0-35.0) 01/26/22 06:19 RDW 13.2 % (11.0-16.0) 01/26/22 06:19 Plt Count 267 X10*3/uL (160-400) 01/26/22 06:19 MPV 10.1 fL (9.4-12.3) 01/26/22 06:19 Immature Gran % (Auto) 0.3 % (0.0-0.4) 01/26/22 06:19 Neut % (Auto) 69.1 % (45-73) 01/26/22 06:19 Lymph % (Auto) 25.3 % (20-40) 01/26/22 06:19 [place] % (Auto) 3.8 % (2-11) 01/26/22 06:19 Eos % (Auto) 1.0 % (0-4) 01/26/22 06:19 Baso % (Auto) 0.5 % (0-2) 01/26/22 06:19 Lymph # (Auto) 2.0 X10*3/uL (1.2-4.9) 01/26/22 06:19 [place] # (Auto) 0.3 X10*3/uL (0.1-1.2) 01/26/22 06:19 Eos # (Auto) 0.1 X10*3/uL (0.0-0.4) 01/26/22 06:19 Baso # (Auto) 0.0 X10*3/uL (0.0-0.2) 01/26/22 06:19 Abs Immat Gran (auto) 0.02 X10*3/uL (0.00-0.03) 01/26/22 06:19 Absolute Neuts (auto) 5.3 x10*3/uL (2.0-8.3) 01/26/22 06:19 Absolute Nucleated RBC 0.000 X10*3/uL (0.0-0.012) 01/26/22 06:19 Nucleated RBC % (auto) 0.0 /100WBC (0.0-0.2) 01/26/22 06:19 Sodium 139 mmol/L (135-145) 01/26/22 06:19 Potassium 4.9 mmol/L (3.3-5.1) D 01/26/22 06:19 Chloride 106 mmol/L (96-108) 01/26/22 06:19 Carbon Dioxide 25 mmol/L (22-29) 01/26/22 06:19 Anion Gap 13 (12-20) 01/26/22 06:19 BUN 14 mg/dL (9-16) 01/26/22 06:19 Creatinine 0.70 mg/dL (0.5-1.4) 01/26/22 06:19 Estim Creat Clear Calc 136.2 01/26/22 06:19 Estimated GFR > 60 01/26/22 06:19 Random Glucose 98 mg/dL (60-115) 01/26/22 06:19 Lactic Acid 1.2 mmol/L (0.5-2.0) 01/26/22 06:20 Calcium 8.9 mg/dL (8.4-10.2) 01/26/22 06:19 Magnesium 2.1 mg/dL (1.6-2.6) 01/26/22 06:19 Total Bilirubin 0.2 mg/dL (0.0-1.0) 01/26/22 06:19 Direct Bilirubin < 0.2 mg/dL (0.0-0.5) 01/26/22 06:19 AST 12 U/L (5-31) 01/26/22 06:19 ALT 15 U/L (0-31) 01/26/22 06:19 Alkaline Phosphatase 69 U/L (39-117) 01/26/22 06:19 Troponin I High Sens < 3.5 ng/L (<3.5-17.0) 01/26/22 06:20 Total Protein 7.1 g/dL (6.5-8.0) 01/26/22 06:19 Albumin 4.2 g/dL (3.5-5.0) 01/26/22 06:19 Beta HCG, Quant < 2 mIU/mL 01/26/22 06:19 Urine Tox screen 01/26/22 0634 Positive- pcp, cocaine, marijuana Ethyl alcohol <[address] scan - head: Radiologist's impression: ITS Impressions Head CT 01/26/22 06:00 IMPRESSION: No acute intracranial pathology. Discharge Plan Discharge Patient Disposition: Home, Self-Care Discharge Diagnosis: seizure, pcp intoxication Referrals: Rosemarie Conroy MD [Physician] - 1 Week Discharge Medications: No Action No Known Home Meds Discharge Orders: Discharge Order (Routine); Ordered 01/27/22 Ordered By: Zaira Lyons Diet: Regular diet Activity on Discharge: As tolerated Stand Alone Forms: Patient Portal Discharge page, Work/School Release Other Ambulatory Orders: EEG ambulatory (Routine) Timeframe: 1 Week Facility: [facility] - Location: Radiology Ordered By: Zaira Lyons Activity Restrictions/Additional Instructions: No driving until seizure free for 6 months or until evaluated by neurology. Care Plan Goals: Prevent further seizure activity and avoid all drug and alcohol use. Follow up with neurology for further investigation into seizures. Health Concerns: Seizure activity related to illicit drug use Plan of Treatment: Follow up outpatient with Dr. Conroy (neurologist you saw in the hospital) for evaluation and EEG study to determine if there is an underlying seizure disorder present. Avoid all alcohol and illicit drugs. Assessment: You had several generalized seizures while in the hospital and likely prior to being brought into the hospital and also had retrograde amnesia, where you did not remember large periods of time, secondary to illicit drug use (most
== END 2022-01-27 11:16 | disposition home or self-care (01) ==
LOC: HO.ED 07:51 → HO.EDOVER 08:55 → HO.S3 23:17
PROVIDERS: Admitting Provider Physician Assistant; Emergency Provider Emergency Medicine; PCP Internal Medicine; Visit Provider Physician Assistant
DX: F16.920 Hallucinogen use, unspecified with intoxication, uncomplicated (principal); R56.9 Unspecified convulsions; R41.2 Retrograde amnesia; F14.10 Cocaine abuse, uncomplicated; F12.10 Cannabis abuse, uncomplicated; F10.10 Alcohol abuse, uncomplicated; Y90.0 Blood alcohol level of less than 20 mg/100 ml; R45.1 Restlessness and agitation; Z20.822 Contact with and (suspected) exposure to COVID-19; F17.200 Nicotine dependence, unspecified, uncomplicated; Z71.6 Tobacco abuse counseling
CPT/HCPCS: 36415; 70450; 80048; 80076; 80307; 81001; 82077; 83605; 83735; 84484; 84702; 85025; 85379; 87635; 93005; 96361; 96365; 96366; 96375; 96376; 99218; 99285; J1953; J2250; J2405

== ENCOUNTER 2022-02-17 19:53 | Emergency (ER) | payer OTHER, SELFPAY ==
[2022-02-17 21:10] VITALS: BP 131/75; PULSE 84; RESP 18; TEMP 36.7; O2SAT 98; BMI 36.9
[2022-02-17] MEDS: Acetaminophen 325 MG TABLET 650 MG PO (21:17)
--- NOTE | 2022-02-17 22:13 | ED_ITS ---
HPI - General Adult General Chief complaint: General Medical Stated complaint: had an IV in hand 3 weeks ago, hand is swollen Time Seen by Provider: 02/17/22 20:00 Source: patient Mode of arrival: ambulatory Limitations: no limitations History of Present Illness HPI narrative: 31-year-old female with a history of drug abuse who presented to the ER today for evaluation of left hand pain, redness, swelling for the last week and a half. She was in the ER on January 26 for substance induced seizure and had an IV in her left hand. She states the pain and swelling started 2 weeks after. He states the swelling and redness has been getting worse is located on the back of her hand. It is worse with movement and palpation. She works at the [employer] and the pain is making her ability to do her job difficult. She denies any numbness, tingling, or weakness. No fevers. MD complaint: Left hand pain Onset (ago): week(s) Location: left and upper extremity Radiation: non-radiation Severity: moderate Severity scale (1-10): 6 Quality: aching Pain Consistency: constant Relieving factors: none Exacerbating factors: movement Associated symptoms: denies other symptoms Treatments prior to arrival: none Related Data Previous Rx's Medication Instructions Recorded amoxicillin 875 mg-potassium 1 tab PO BID #14 tabs 02/17/22 clavulanate 125 mg tablet ibuprofen 600 mg tablet 600 mg PO Q8H PRN pain #14 tabs 02/17/22 Allergies Allergy/AdvReac Type Severity Reaction Status Date / Time No Known Allergies Allergy Verified 02/17/22 21:10 Review of Systems Review of Systems: Constitutional: No Fever, No Chills Cardiovascular: No Chest Pain, No SOB Respiratory: No Cough, No Sputum Gastrointestinal: No Nausea, No Vomiting, No abdominal Pain Genitourinary: No Dysuria, No Urinary Frequency, No Hematuria Musculoskeletal: No joint pain, No Myalgias Skin: +Skin Lesions, No rash Neuro: No Weakness, No Numbness, No Dizziness, No Headache Psych: + Anxiety/Panic, No Depression Heme/Lymph: No Bruising, No Lymphadenopathy PMFSH Past Medical History Medical History (Updated 02/17/22 @ 22:14 by DEJAH Mayfield) COVID-19 Depression Family History Family History (Updated 01/26/22 @ 09:42 by DEJAH Lieberman) Mother Alcohol abuse Drug abuse and dependence Father Drug abuse and dependence Alcohol abuse Maternal Grandfather Cancer of unknown origin Paternal Grandmother Lung cancer Social History Social History (Updated 04/02/21 @ 13:02 by Daniela Dougherty DO) Household Members: Family Housing: Apartment Do you presently have visiting nurse or other home services: No Alcohol intake: current Alcohol intake frequency: holidays/special occasions only Patient Tobacco Use Status: Current everyday Tobacco user Cigarette Packs Per Day: 0.5 Cigarettes Per Day: 10.0 Years Smoked: 15 e-Cigarette/Vaping Use: Never Used Second Hand Smoke Exposure: No 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 Oriented X3. No acute distress. HEENT: normal inspection CVS: Normal heart rate and rhythm. Pulses normal. Respiratory: No respiratory distress. Skin: Skin warm and dry. Normal skin color. Normal skin turgor. No rashes. Extremities: dorsum of the left hand with erythema, warmth and tenderness. 2+ radial pulse. NV Intact. Neuro: Oriented X 3. No motor deficit. No sensory deficit. Course Course Course Narrative: 31 yo female presenting to the ER with 1.5 weeks of left hand pain after an IV placement. Exam is consistent with superficial thrombophlebitis. there also may be a component cellulitis given that the erythema is spreading. Will treat her with NSAIDs and course of antibiotics. She was advised to use warm soaks and compresses to the area. She is stable for discharge home. She will follow- up with her PCP. Discharge Plan Discharge Clinical Impression: Superficial thrombophlebitis, Cellulitis Patient Disposition: Home, Self-Care Instructions: Cellulitis (ED), Superficial Thrombophlebitis (ED), Warm Compress or Soak (ED) Additional Instructions: Take the prescribed medications as directed. Start taking them tomorrow morning, your given 1st dose today in the ER. It is important to use warm compresses to the hand several times per day to help increased blood flow Follow up with your doctor If you develop new or worsening symptoms call 911 or come back to the ER for further evaluation. Prescriptions: New ibuprofen 600 mg tablet 600 mg PO Q8H PRN (Reason: pain) Qty: 14 0RF amoxicillin-pot clavulanate 875-125 mg tablet 1 tab PO BID Qty: 14 0RF Interventions: ED Discharge Assessment Last Done: 02/17/22 22:46 Discharge Date/Time: 02/17/22 22:47
[2022-02-17] MEDS: Amoxicillin/Potassium Clav 875 MG TABLET PO (22:26)
[2022-02-17] MEDS: Ibuprofen 600 MG TABLET PO (22:26)
== END 2022-02-17 22:47 | disposition home or self-care (01) ==
PROVIDERS: Emergency Provider Internal Medicine
DX: L03.114 Cellulitis of left upper limb (principal); I80.9 Phlebitis and thrombophlebitis of unspecified site; F11.10 Opioid abuse, uncomplicated; F17.210 Nicotine dependence, cigarettes, uncomplicated; Z71.6 Tobacco abuse counseling; Z79.899 Other long term (current) drug therapy
CPT/HCPCS: 99283

== ENCOUNTER 2022-03-21 23:25 | Emergency (ER) | payer OTHER, SELFPAY ==
[2022-03-22 00:07] VITALS: BP 125/69; PULSE 85; RESP 18; TEMP 36.6; O2SAT 95; BMI 38.2
--- NOTE | 2022-03-22 01:15 | ED.DENTAL ---
HPI - Dental/Oral General Chief complaint: Dental/Oral Stated complaint: Tooth infected/Facial swelling Time Seen by Provider: 03/22/22 01:15 Source: patient Mode of arrival: ambulatory Limitations: no limitations History of Present Illness HPI Narrative: 31-year-old female presents with dental pain and facial swelling for 3 days after cracking a molar. Patient has poor dental care, and has not seen a dentist in over a year. She did have antibiotics left over from a prior illness, took 2 doses and stated that that antibiotic did help her with swelling and pain. She does know the name of the medication. She does not have a dentist at this time. She is able to open and close her mouth, but has sensitivity when exposed to heat and cold. She did not report fever or chills, and is able to swallow without difficulty. MD Complaint: tooth pain Teeth map: 1. Cracked, dental caries Onset (ago): day(s) (3) Duration: constant Severity: severe Severity scale (1-10): 9 Relieving factors: NSAIDs Exacerbating factors: chewing, cold and heat Context: history of dental caries and poor dental care Treatment prior to arrival: oral analgesic Related Data Previous Rx's Medication Instructions Recorded amoxicillin 875 mg-potassium 1 tab PO BID #14 tabs 02/17/22 clavulanate 125 mg tablet ibuprofen 600 mg tablet 600 mg PO Q8H PRN pain #14 tabs 02/17/22 amoxicillin 875 mg-potassium 1 tab PO Q12H 10 days #20 tabs 03/22/22 clavulanate 125 mg tablet ibuprofen 600 mg tablet 600 mg PO Q6H PRN pain #30 tabs 03/22/22 Allergies Allergy/AdvReac Type Severity Reaction Status Date / Time No Known Allergies Allergy Verified 02/17/22 21:10 Review of Systems Review of Systems: Constitutional: No Fever, No Chills ENT/Mouth: No swallowing difficulty, no change in voice, positive dental pain, positive jaw pain, positive facial swelling Eyes: No Eye Pain, No Swelling Cardiovascular: No Chest Pain, No SOB Respiratory: No Cough, No Sputum, No Wheezing, No Smoke Exposure, No Dyspnea Gastrointestinal: No Nausea, No Vomiting, No Diarrhea Genitourinary: No Dysuria Musculoskeletal: No Myalgias Skin: No rash Neuro: No Weakness, No Numbness, No Headache Yes all other systems are reviewed and are negative PMFSH Past Medical History Attestation statement: The following information was validated with the patient. Source: old records reviewed Medical History COVID-19 Depression Family History Family History Mother Alcohol abuse Drug abuse and dependence Father Drug abuse and dependence Alcohol abuse Maternal Grandfather Cancer of unknown origin Paternal Grandmother Lung cancer Social History Social History Household Members: Family Housing: Apartment Do you presently have visiting nurse or other home services: No Alcohol intake: current Alcohol intake frequency: holidays/special occasions only Patient Tobacco Use Status: Current everyday Tobacco user Cigarette Packs Per Day: 0.5 Cigarettes Per Day: 10.0 Years Smoked: 15 e-Cigarette/Vaping Use: Never Used Second Hand Smoke Exposure: No 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 Oriented X3. No acute distress. Eyes: Pupils equal, round and reactive to light. ENT: Pharynx normal. Dental caries noted tooth 2., mild tenderness to maxillary palpation. No mastoid tenderness. No cervical lymphadenopathy noted. Neck: Normal inspection. Neck supple. CVS: Normal heart rate and rhythm. Pulses normal. Respiratory: No respiratory distress. Breath sounds normal. Abdomen: Soft and nontender. Skin: Skin warm and dry. Normal skin color. Normal skin turgor. Extremities: No lower extremity edema. Gait well-balanced well coordinated. Neuro: No motor deficit. No sensory deficit. Cranial nerves 2-12 intact. Course Course Course Narrative: 31-year-old female presents with 3 days of facial swelling and dental pain after cracking a tooth, has poor dental care. She did take 2 doses of an antibiotic 1 day ago, antibiotics were left over from prior cellulitis that has resolved. She does not recall the name medication. Patient is able to eat and drink without sore throat or swallowing difficulty, does have tenderness to the tooth when chewing or has heat or cold exposure. Patient is alert oriented x4, answering questions politely and appropriately, able to open and close her mouth without difficulty. Plan of care is for Augmentin, Toradol injection, and for patient to follow-up with dentist. Patient verbalized understanding of and agrees to plan of care discharge home. Verbalized understanding of signs and symptoms indicating need for emergent intervention. MDM - Dental/Oral Differential Diagnosis Differential diagnosis: Likely gingival abscess, dental caries, toothache, dental abscess and fracture of tooth Medical Records Attestation: I reviewed the patient's medical records. Discharge Plan Discharge Clinical Impression: Toothache, Dental caries Patient Disposition: Home, Self-Care Instructions: Toothache (ED) Additional Instructions: You were evaluated for dental pain. Please take Augmentin 875 mg twice a day for the next 10 days. Take Tylenol 650 mg every 6 hours as needed and Motrin 600 mg every 6 hours as needed for pain management. Right down with tiny take these medications and accidental overdose. Her last dose of Toradol was around 02:00. Your next dose of Motrin is due at 08:00. Please consider taking Tylenol at 05:00 so you can have some kind of pain relief every 3 hours. Follow-up with a dentist. Thank you for choosing this emergency department for evaluation. Please follow-up with primary care physician as needed. Return to the emergency department for any new, concerning, or worsening symptoms. Prescriptions: New amoxicillin-pot clavulanate 875-125 mg tablet 1 tab PO Q12H 10 Days Qty: 20 0RF ibuprofen 600 mg tablet 600 mg PO Q6H PRN (Reason: pain) Qty: 30 0RF No Action ibuprofen 600 mg tablet 600 mg PO Q8H PRN (Reason: pain) Qty: 14 0RF amoxicillin-pot clavulanate 875-125 mg tablet 1 tab PO BID Qty: 14 0RF Stand Alone Forms: [facility] Emergency Numbers
[2022-03-22] MEDS: Amoxicillin/Potassium Clav 875 MG TABLET PO (01:39)
== END 2022-03-22 01:45 | disposition home or self-care (01) ==
PROVIDERS: Emergency Provider Emergency Medicine
DX: K02.9 Dental caries, unspecified (principal); F17.210 Nicotine dependence, cigarettes, uncomplicated; Z71.6 Tobacco abuse counseling; Z79.899 Other long term (current) drug therapy
CPT/HCPCS: 96372; 99282; 99284; J1885

== ENCOUNTER 2022-04-11 06:20 | Emergency (ER) | payer OTHER, SELFPAY ==
--- NOTE | ~2022-04-11 | CT_ITS ---
EXAMINATION: CT HEAD WITHOUT CONTRAST CLINICAL INFORMATION: Seizure COMPARISON: None TECHNIQUE: Contiguous axial imaging was performed from the skull base to vertex without intravenous administration of contrast. This CT examination was performed using dose optimization techniques as appropriate, variously including the following: *Automated exposure control *Adjustment of mA and/or kV according to patient size (this includes techniques or standardized protocols for targeted exams where dose is matched to indication/reason for exam; i.e. extremities or head) *Use of iterative reconstruction technique DLP: 730 mGy-cm FINDINGS: There is no evidence of acute intracranial hemorrhage or territorial infarction. No abnormal mass effect or midline shift is seen. [place] to white matter differentiation is well preserved. No extra-axial fluid collections are identified. The ventricles are normal in size. No abnormal attenuation in the brain parenchyma. Calvarium appears intact. Paranasal sinuses and mastoid air cells are well-aerated. CT/CT head/brain wo IV con IMPRESSION: No CT evidence of acute intracranial hemorrhage or edematous territorial infarction. Further evaluation with MRI as clinically warranted.
--- NOTE | ~2022-04-11 | XR_ITS ---
EXAMINATION: XR CHEST CLINICAL INFORMATION: Cough COMPARISON: X-ray 01/04/2010 TECHNIQUE: Frontal view of the chest was obtained. FINDINGS: The lungs are well-expanded. There is no focal consolidation, edema or effusion. No pneumothorax. The cardiomediastinal silhouette is within normal limits. No acute osseous abnormality. XR/XR chest 1V IMPRESSION: No acute pulmonary disease.
[2022-04-11 06:22] VITALS: BP 107/61; BP 125/78; PULSE 73; RESP 19; TEMP 36.8; O2SAT 95; O2SAT 97; BMI 36.8
[2022-04-11 06:35] VITALS: BP 107/61; PULSE 77; RESP 19; TEMP 36.8; O2SAT 96
--- NOTE | 2022-04-11 06:37 | PC.NURSE ---
Pt. on secured entrance monitor at this time
--- NOTE | 2022-04-11 06:39 | PC.NURSE ---
Seizure precautions in place/seizure pads on bed
--- NOTE | 2022-04-11 06:45 | ECG_ITS ---
Test Reason : CHEST PAIN Blood Pressure : / mmHG Vent. Rate : 058 BPM Atrial Rate : 058 BPM P-R Int : 178 ms QRS Dur : 088 ms QT Int : 418 ms P-R-T Axes : 029 -12 017 degrees QTc Int : 410 ms Sinus bradycardia Low voltage QRS Borderline ECG When compared with ECG of 26-JAN-2022 08:41, No significant change was found Referred By: Scott Ascencio Electronically Signed By:CARLYN PRAJAPATI MD
--- NOTE | 2022-04-11 06:48 | ED_ITS ---
HPI - Seizure General Chief Complaint: Seizure Stated Complaint: seizure Time Seen by Provider: 04/11/22 06:39 Source: patient and EMS Mode of arrival: EMS History of Present Illness HPI Narrative: This is 31 years old female presented to the ED with chief complaint of seizure, patient does no remember the event the event was witnessed by . She states that this is the 3rd seizure she has an appointment with the neurologist, she states that she had 1 seizure during and then she had another seizure when she was seen year in this department MD complaint: seizure Description of Episode: loss of consciousness and tonic-clonic movement Witnessed: Yes - by Other () Trauma: No Seizure History: Yes Place: Home Possible Precipitating Event: none Associated symptoms: denies other symptoms Related Data Previous Rx's Medication Instructions Recorded amoxicillin 875 mg-potassium 1 tab PO BID #14 tabs 02/17/22 clavulanate 125 mg tablet ibuprofen 600 mg tablet 600 mg PO Q8H PRN pain #14 tabs 02/17/22 amoxicillin 875 mg-potassium 1 tab PO Q12H 10 days #20 tabs 03/22/22 clavulanate 125 mg tablet ibuprofen 600 mg tablet 600 mg PO Q6H PRN pain #30 tabs 03/22/22 levetiracetam 500 mg tablet 500 mg PO BID #60 tabs 04/11/22 (Keppra) Allergies Allergy/AdvReac Type Severity Reaction Status Date / Time No Known Allergies Allergy Verified 02/17/22 21:10 Review of Systems Review of Systems: Yes all other systems are reviewed and are negative Constitutional: Constitutional: Denies chills and Denies fever(s) Cardiovascular: Cardiovascular: Reports no additional cardiovascular complaints Respiratory: Respiratory: Reports no additional respiratory complaints [facility] Past Medical History [facility] Narrative: Patient denies any major medical problem she has been evaluated x1 for seizure Medical History COVID-19 Depression Family History Family History Mother Alcohol abuse Drug abuse and dependence Father Drug abuse and dependence Alcohol abuse Maternal Grandfather Cancer of unknown origin Paternal Grandmother Lung cancer Social History Social History Household Members: Family Housing: Apartment Do you presently have visiting nurse or other home services: No Alcohol intake: current Alcohol intake frequency: a few times a month Alcohol type: beer and hard liquor Patient Tobacco Use Status: Current everyday Tobacco user Cigarette Packs Per Day: 0.5 Cigarettes Per Day: 10.0 Years Smoked: 15 e-Cigarette/Vaping Use: Never Used Second Hand Smoke Exposure: No Use of substances other than those prescribed or required for medical reasons: Yes Substance Use Type: Marijuana Substance Use Frequency: Daily Advance Directives: No Advance Directives Information Provided: Yes Patient : No service: No Current occupational status: unemployed Physical Exam 2 Vital Signs: Vital Signs: Last Vital Signs Temp 97.9 F 04/11/22 10:14 Pulse 65 04/11/22 10:14 Resp 16 04/11/22 10:14 BP 110/75 04/11/22 10:14 Pulse Ox 97 04/11/22 10:14 O2 Del Method 04/11/22 10:14 BMI result Body Mass Index 36.8 Const: General: cooperative, healthy appearing, comfortable, no acute distress, well developed, alert and awake Nutritional Appearance: average body habitus HEENT: Head: Yes normal to inspection, Yes normocephalic and Yes atraumatic General nose exam: Normal external nose present Face and sinus: Yes normal facial exam Mouth: Normal oral and palatal mucosa present Throat: Yes posterior oropharynx normal Eyes: General: appearance normal, both eyes and all related structures Pupils: Pupils normal by confrontation EOM: EOMs intact bilaterally Neck: Neck: Yes normal visual inspection and Yes full ROM Chest: Chest palpation & inspection: normal inspection of the chest Resp: Effort & Inspection: normal respiratory effort Auscultation: clear to auscultation bilaterally Cardio: Jugular venous distension: no JVD Rate: regular rate Rhythm: regular rhythm GI: Inspection: Yes normal to inspection Palpation (GI): Soft to palpation, not firm, nontender and no guarding Skin: General skin exam: no rashes or lesions noted, elasticity normal and turgor normal Rashes: no rashes Neuro: Other: She is awake alert oriented times through cranial nerve very intact the she has no deficit in strength and no deficit in sensation Course Reevaluation(s) Reevaluation #1: She remain asyntomatic. I spoke with boyfriend Josue Clay/[id number] he describe a grand maln seizure,he was with the pt ,pt fell they started to shake and was post ictal. Pt has ap pointment with neurologist in few days.I will start her on keppra 500 mg BID because now is the #3 seizure,ct head negative labs normal,drug screen only positive for cannabinoid Time: 09:45 MDM - Seizure Medical Records Medical records narrative: Patient present with # 3 Seizure in the last year, she is not on meds I think we going to go ahead and start on IV Keppra will check blood work and ST-T Lab Data Result diagrams: 04/11/22 07:09 04/11/22 07:09 Labs: Lab Results 04/11/22 04/11/22 04/11/22 Range/Units 07:09 07:09 07:09 WBC 7.1 (4.8-10.8) X10*3/uL RBC 4.60 (4.20-5.50) X10*6/uL Hgb 12.8 (12.0-16.0) g/dl Hct 39.2 (37.0-47.0) % MCV 85.2 (80.0-98.0) fL MCH 27.8 (27.0-33.0) pg MCHC 32.7 (31.0-35.0) g/dl RDW 13.1 (11.0-16.0) % Plt Count 264 (160-400) X10*3/uL MPV 9.4 (9.4-12.3) fL Immature Gran % (Auto) 0.3 (0.0-0.4) % Neut % (Auto) 57.1 (45-73) % Lymph % (Auto) 36.6 (20-40) % [place] % (Auto) 4.1 (2-11) % Eos % (Auto) 1.3 (0-4) % Baso % (Auto) 0.6 (0-2) % Lymph # (Auto) 2.6 (1.2-4.9) X10*3/uL [place] # (Auto) 0.3 (0.1-1.2) X10*3/uL Eos # (Auto) 0.1 (0.0-0.4) X10*3/uL Baso # (Auto) 0.0 (0.0-0.2) X10*3/uL Abs Immat Gran (auto) 0.02 (0.00-0.03) X10*3/uL Absolute Neuts (auto) 4.1 (2.0-8.3) x10*3/uL Absolute Nucleated RBC 0.000 (0.0-0.012) X10*3/uL Nucleated RBC % (auto) 0.0 (0.0-0.2) /100WBC PT 11.2 (10.0-13.1) SEC INR 1.0 (0.9-1.1) APTT (26.0-36.4) SEC Sodium 139 (135-145) mmol/L Potassium 4.5 (3.3-5.1) mmol/L Chloride 105 (96-108) mmol/L Carbon Dioxide 25 (22-29) mmol/L Anion Gap 14 (12-20) BUN 13 (9-16) mg/dL Creatinine 0.69 (0.5-1.4) mg/dL Estim Creat Clear Calc 138.6 Estimated GFR > 60 Random Glucose 93 (60-115) mg/dL Calcium 9.1 (8.4-10.2) mg/dL Total Bilirubin 0.2 (0.0-1.0) mg/dL AST 11 (5-31) U/L ALT 14 (0-31) U/L Alkaline Phosphatase 65 (39-117) U/L Troponin I High Sens (<3.5-17.0) ng/L Total Protein 6.4 L (6.5-8.0) g/dL Albumin 4.0 (3.5-5.0) g/dL Beta HCG, Quant mIU/mL Urine Color Urine Appearance Urine pH (5.0-9.0) Ur Specific [place] (1.005-1.025) Urine Protein (Neg-Trace) mg/dL Urine Glucose (UA) (Negative) mg/dL Urine Ketones (Negative) mg/dL Urine Blood (Negative) Urine Nitrite (Negative) Ur Leukocyte Esterase (Negative) Urine RBC (0-2) /HPF Urine WBC (0-5) /HPF Ur Squamous Epith Cells (0-2) /HPF Urine Bacteria (None Seen) Hyaline Casts (0-2) /LPF Urine Opiates Screen (Not Detect) Urine Fentanyl Screen (Not Detect) Ur Barbiturates Screen (Not Detect) Ur Phencyclidine Scrn (Not Detect) Ur Amphetamines Screen (Not Detect) U Benzodiazepines Scrn (Not Detect) Urine Cocaine Screen (Not Detect) U Marijuana (THC) Screen (Not Detect) COVID-19 (BRITTNEY) (Negative) COVID-19 Clin Com 04/11/22 04/11/22 04/11/22 Range/Units 07:09 07:09 07:09 WBC (4.8-10.8) X10*3/uL RBC (4.20-5.50) X10*6/uL Hgb (12.0-16.0) g/dl Hct (37.0-47.0) % MCV (80.0-98.0) fL MCH (27.0-33.0) pg MCHC (31.0-35.0) g/dl RDW (11.0-16.0) % Plt Count (160-400) X10*3/uL MPV (9.4-12.3) fL Immature Gran % (Auto) (0.0-0.4) % Neut % (Auto) (45-73) % Lymph % (Auto) (20-40) % [place] % (Auto) (2-11) % Eos % (Auto) (0-4) % Baso % (Auto) (0-2) % Lymph # (Auto) (1.2-4.9) X10*3/uL [place] # (Auto) (0.1-1.2) X10*3/uL Eos # (Auto) (0.0-0.4) X10*3/uL Baso # (Auto) (0.0-0.2) X10*3/uL Abs Immat Gran (auto) (0.00-0.03) X10*3/uL Absolute Neuts (auto) (2.0-8.3) x10*3/uL Absolute Nucleated RBC (0.0-0.012) X10*3/uL Nucleated RBC % (auto) (0.0-0.2) /100WBC PT (10.0-13.1) SEC INR (0.9-1.1) APTT 35.6 (26.0-36.4) SEC Sodium (135-145) mmol/L Potassium (3.3-5.1) mmol/L Chloride (96-108) mmol/L Carbon Dioxide (22-29) mmol/L Anion Gap (12-20) BUN (9-16) mg/dL Creatinine (0.5-1.4) mg/dL Estim Creat Clear Calc Estimated GFR Random Glucose (60-115) mg/dL Calcium (8.4-10.2) mg/dL Total Bilirubin (0.0-1.0) mg/dL AST (5-31) U/L ALT (0-31) U/L Alkaline Phosphatase (39-117) U/L Troponin I High Sens < 3.5 (<3.5-17.0) ng/L Total Protein (6.5-8.0) g/dL Albumin (3.5-5.0) g/dL Beta HCG, Quant mIU/mL Urine Color Urine Appearance Urine pH (5.0-9.0) Ur Specific [place] (1.005-1.025) Urine Protein (Neg-Trace) mg/dL Urine Glucose (UA) (Negative) mg/dL Urine Ketones (Negative) mg/dL Urine Blood (Negative) Urine Nitrite (Negative) Ur Leukocyte Esterase (Negative) Urine RBC (0-2) /HPF Urine WBC (0-5) /HPF Ur Squamous Epith Cells (0-2) /HPF Urine Bacteria (None Seen) Hyaline Casts (0-2) /LPF Urine Opiates Screen (Not Detect) Urine Fentanyl Screen (Not Detect) Ur Barbiturates Screen (Not Detect) Ur Phencyclidine Scrn (Not Detect) Ur Amphetamines Screen (Not Detect) U Benzodiazepines Scrn (Not Detect) Urine Cocaine Screen (Not Detect) U Marijuana (THC) Screen (Not Detect) COVID-19 (BRITTNEY) Negative (Negative) COVID-19 Clin Com See Note 04/11/22 04/11/22 04/11/22 Range/Units 07:09 07:55 07:55 WBC (4.8-10.8) X10*3/uL RBC (4.20-5.50) X10*6/uL Hgb (12.0-16.0) g/dl Hct (37.0-47.0) % MCV (80.0-98.0) fL MCH (27.0-33.0) pg MCHC (31.0-35.0) g/dl RDW (11.0-16.0) % Plt Count (160-400) X10*3/uL MPV (9.4-12.3) fL Immature Gran % (Auto) (0.0-0.4) % Neut % (Auto) (45-73) % Lymph % (Auto) (20-40) % [place] % (Auto) (2-11) % Eos % (Auto) (0-4) % Baso % (Auto) (0-2) % Lymph # (Auto) (1.2-4.9) X10*3/uL [place] # (Auto) (0.1-1.2) X10*3/uL Eos # (Auto) (0.0-0.4) X10*3/uL Baso # (Auto) (0.0-0.2) X10*3/uL Abs Immat Gran (auto) (0.00-0.03) X10*3/uL Absolute Neuts (auto) (2.0-8.3) x10*3/uL Absolute Nucleated RBC (0.0-0.012) X10*3/uL Nucleated RBC % (auto) (0.0-0.2) /100WBC PT (10.0-13.1) SEC INR (0.9-1.1) APTT (26.0-36.4) SEC Sodium (135-145) mmol/L Potassium (3.3-5.1) mmol/L Chloride (96-108) mmol/L Carbon Dioxide (22-29) mmol/L Anion Gap (12-20) BUN (9-16) mg/dL Creatinine (0.5-1.4) mg/dL Estim Creat Clear Calc Estimated GFR Random Glucose (60-115) mg/dL Calcium (8.4-10.2) mg/dL Total Bilirubin (0.0-1.0) mg/dL AST (5-31) U/L ALT (0-31) U/L Alkaline Phosphatase (39-117) U/L Troponin I High Sens (<3.5-17.0) ng/L Total Protein (6.5-8.0) g/dL Albumin (3.5-5.0) g/dL Beta HCG, Quant < 2 mIU/mL Urine Color Yellow Urine Appearance Cloudy Urine pH 5.5 (5.0-9.0) Ur Specific [place] 1.020 (1.005-1.025) Urine Protein Trace (Neg-Trace) mg/dL Urine Glucose (UA) Negative (Negative) mg/dL Urine Ketones Negative (Negative) mg/dL Urine Blood Trace H (Negative) Urine Nitrite Negative (Negative) Ur Leukocyte Esterase Small (1+) H (Negative) Urine RBC 3-5 H (0-2) /HPF Urine WBC 0-5 (0-5) /HPF Ur Squamous Epith Cells 6-10 (0-2) /HPF Urine Bacteria 1+ (None Seen) Hyaline Casts 0-2 (0-2) /LPF Urine Opiates Screen Not Detected (Not Detect) Urine Fentanyl Screen Not Detected (Not Detect) Ur Barbiturates Screen Not Detected (Not Detect) Ur Phencyclidine Scrn Not Detected (Not Detect) Ur Amphetamines Screen Not Detected (Not Detect) U Benzodiazepines Scrn Not Detected (Not Detect) Urine Cocaine Screen Not Detected (Not Detect) U Marijuana (THC) Screen POSITIVE H (Not Detect) COVID-19 (BRITTNEY) (Negative) COVID-19 Clin Com Imaging Data CT scan - head: Radiologist's impression: ose optimization techniques as appropriate, variously including the following: *Automated exposure control *Adjustment of mA and/or kV according to patient size (this includes techniques or standardized protocols for targeted exams where dose is matched to indication/reason for exam; i.e. extremities or head) *Use of iterative reconstruction technique DLP: 730 mGy-cm FINDINGS: There is no evidence of acute intracranial hemorrhage or territorial infarction. No abnormal mass effect or midline shift is seen. [place]man to white matter differentiation is well preserved. No extra-axial fluid collections are identified. The ventricles are normal in size. No abnormal attenuation in the brain parenchyma. Calvarium appears intact. Paranasal sinuses and mastoid air cells are well-aerated. ? CT/CT head/brain wo IV con IMPRESSION: No CT evidence of acute intracranial hemorrhage or edematous territorial infarction. Further evaluation with MRI as clinically warranted. ? ? ECG Data Attestation: I personally reviewed and interpreted this ECG as follows: Pacemaker model: Normal sinus rhythm rate [address]-T changes Discharge Plan Discharge Clinical Impression: Seizure Patient Disposition: Home, Self-Care Instructions: New-Onset Seizure in Adults (ED) Additional Instructions: Keep an appointment with neurologist as scheduled Apr 24 ,return if worse,do not drive or operate machine X 6 Months Prescriptions: New levetiracetam [Keppra] 500 mg tablet 500 mg PO BID Qty: 60 0RF No Action amoxicillin-pot clavulanate 875-125 mg tablet 1 tab PO Q12H 10 Days Qty: 20 0RF ibuprofen 600 mg tablet 600 mg PO Q6H PRN (Reason: pain) Qty: 30 0RF ibuprofen 600 mg tablet 600 mg PO Q8H PRN (Reason: pain) Qty: 14 0RF amoxicillin-pot clavulanate 875-125 mg tablet 1 tab PO BID Qty: 14 0RF Interventions: ED Discharge Assessment Last Done: 04/11/22 10:13 Discharge Date/Time: 04/11/22 10:32
[2022-04-11] MEDS: levETIRAcetam in NaCl (iso-os) 1,000 MG/100 ML PIGGYBACK 400 MG IV (07:00)
[2022-04-11] MEDS: 0.9 % Sodium Chloride 1,000 ML 999 ML IVCONT (07:01)
--- NOTE | 2022-04-11 07:09 | PC.NURSE ---
COVID swab and labs sent as ordered
[2022-04-11 07:15] LABS: MANUAL DIFF FLAG NO
[2022-04-11 07:17] LABS: Basophils Percent Auto 0.6 % (0-2); Eosinophils Absolute Auto 0.1 X10*3/uL (0.0-0.4); Eosinophils Percent Auto 1.3 % (0-4); Hematocrit 39.2 % (37.0-47.0); Hemoglobin 12.8 g/dl (12.0-16.0); Imm Gran Abs Auto 0.02 X10*3/uL (0.00-0.03); Imm Gran Pct Auto 0.3 % (0.0-0.4); Lymphocytes Absolute Auto 2.6 X10*3/uL (1.2-4.9); Lymphocytes Percent Auto 36.6 % (20-40); Mean Corpuscular HGB Conc 32.7 g/dl (31.0-35.0); Mean Corpuscular Hemoglobin 27.8 pg (27.0-33.0); Mean Corpuscular Volume 85.2 fL (80.0-98.0); Mean Platelet Volume 9.4 fL (9.4-12.3); Monocytes Absolute Auto 0.3 X10*3/uL (0.1-1.2); Monocytes Percent Auto 4.1 % (2-11); Neutrophils Absolute Auto 4.1 x10*3/uL (2.0-8.3); Neutrophils Percent Auto 57.1 % (45-73); Platelet Count 264 X10*3/uL (160-400); Red Cell Distribution Width 13.1 % (11.0-16.0); White Blood Count 7.1 X10*3/uL (4.8-10.8)
[2022-04-11 07:23] LABS: Prothrombin Time 11.2 SEC (10.0-13.1)
[2022-04-11 07:26] LABS: Partial Thromboplastin Time 35.6 SEC (26.0-36.4)
[2022-04-11 07:29] LABS: COVID-19 Test Negative (Negative); IDNOW Serial# 16C4AD1C
[2022-04-11 07:45] LABS: Alanine Aminotransferase 14 U/L (0-31); Alkaline Phosphatase 65 U/L (39-117); Anion Gap 14 (12-20); Aspartate Amino Transferase 11 U/L (5-31); Bilirubin Total 0.2 mg/dL (0.0-1.0); Blood Urea Nitrogen 13 mg/dL (9-16); Calcium 9.1 mg/dL (8.4-10.2); Carbon Dioxide 25 mmol/L (22-29); Chloride 105 mmol/L (96-108); Creatinine Clr Calc Pharmacy 138.6; Estimated Glomerular Filt Rate > 60; Glucose Random 93 mg/dL (60-115); Potassium 4.5 mmol/L (3.3-5.1); Sodium 139 mmol/L (135-145); Total Protein 6.4 g/dL (6.5-8.0)
[2022-04-11 07:46] LABS: Troponin-I High Sensitivity < 3.5 ng/L (<3.5-17.0)
[2022-04-11 07:47] LABS: HCG Quantitative < 2 mIU/mL
[2022-04-11 08:00] VITALS: BP 110/74; PULSE 66; RESP 19; TEMP 36.4; O2SAT 98
[2022-04-11 08:08] LABS: Appearance Urine Cloudy; Color Urine Yellow; Glucose Urine UA Negative (Negative); Leukocyte Esterase Urine Small (1+) (Negative); Nitrite Urine Negative (Negative); PH 5.5 (5.0-9.0); UMIC TRIGGER UACC YES; Urine Blood Trace (Negative); Urine Ketones Negative (Negative); Urine Protein Trace mg/dL (Neg-Trace)
[2022-04-11 08:14] LABS: Amphetamine Screen Urine Not Detected (Not Detect); Barbiturates, Urine Not Detected (Not Detect); Benzodiazepines Screen Urine Not Detected (Not Detect); Cannabinoid Screen Urine POSITIVE (Not Detect); Cocaine Screen Urine Not Detected (Not Detect); Fentanyl, urine Not Detected (Not Detect); Opiate Screen Urine Not Detected (Not Detect); Phencyclidine Screen Urine Not Detected (Not Detect)
[2022-04-11 08:25] LABS: Bacteria Urine 1+ (None Seen); Hyaline Casts Urine 0-2 /LPF (0-2); UACC Culture Trigger YES; WBC Urine 0-5 /HPF (0-5)
--- NOTE | 2022-04-11 09:24 | PC.NURSE ---
patient a/o x4 . pearrla . lungs clear heart rate regular at 85 beats per minute . patient on seizure precautions at this time . skin pink warm and dry . patient ambulated to bathroom and gave urine sample , sent to lab . abdomen soft not tender . postive bowel sounds in all quadrants . patient aware of plan of care .
[2022-04-11 10:14] VITALS: BP 110/75; PULSE 65; RESP 16; TEMP 36.6; O2SAT 97
--- NOTE | 2022-04-11 10:14 | PC.NURSE ---
patient a/o x4 . patient has had no seizure activity . breathing even and unlabored . patient to follow up with already scheduled appointment with neurology on April 24 . patient educated on medication , Keppra and not to drink Alcohol while on this medication . patient to return if symptoms worsen . patient made aware to not drive or operate machine for 6 months . no questions a this time .
== END 2022-04-11 10:32 | disposition home or self-care (01) ==
PROVIDERS: Emergency Provider Emergency Medicine
DX: R56.9 Unspecified convulsions (principal); R07.89 Other chest pain; Z20.822 Contact with and (suspected) exposure to COVID-19; Z79.899 Other long term (current) drug therapy; F17.210 Nicotine dependence, cigarettes, uncomplicated; Z71.6 Tobacco abuse counseling
CPT/HCPCS: 36415; 70450; 71045; 80053; 80307; 81001; 84484; 84702; 85025; 85610; 85730; 87086; 87635; 93005; 96361; 96365; 96366; 99284; J1953

== ENCOUNTER 2022-04-15 06:39 | Emergency (ER) | payer OTHER, SELFPAY ==
[2022-04-15 06:46] VITALS: BP 112/71; BP 127/83; PULSE 68; PULSE 78; RESP 16; TEMP 36.8; O2SAT 95; O2SAT 96; BMI 38.2
--- NOTE | 2022-04-15 07:10 | ED_ITS ---
HPI - Seizure General Chief Complaint: Seizure Stated Complaint: seizure with fall Time Seen by Provider: 04/15/22 07:06 Source: patient and old records reviewed Mode of arrival: EMS Limitations: no limitations History of Present Illness HPI Narrative: 40 yo female with hx of substance abuse, asthma, seizures, mental illness comes in after witnesed GTC seizure no headstrike has not taken her keppra in months. She denies any other symptoms at this time. c/o being tired agrees to Rx for keppra complaint: seizure Onset (ago): minute(s) (just prior to arrival ) Description of Episode: loss of consciousness and tonic-clonic movement Duration of episode: 2 -: minutes(s) Witnessed: Yes - by Bystander Trauma: No Seizure History: Yes Place: Home Possible Precipitating Event: medication (has not taken AED in months) Associated symptoms: confusion Treatments prior to arrival: none Related Data Previous Rx's Medication Instructions Recorded amoxicillin 875 mg-potassium 1 tab PO BID #14 tabs 02/17/22 clavulanate 125 mg tablet ibuprofen 600 mg tablet 600 mg PO Q8H PRN pain #14 tabs 02/17/22 amoxicillin 875 mg-potassium 1 tab PO Q12H 10 days #20 tabs 03/22/22 clavulanate 125 mg tablet ibuprofen 600 mg tablet 600 mg PO Q6H PRN pain #30 tabs 03/22/22 levetiracetam 500 mg tablet 500 mg PO BID #60 tabs 04/11/22 (Keppra) levetiracetam 500 mg tablet 500 mg PO BID #60 tabs 04/15/22 (Keppra) Allergies Allergy/AdvReac Type Severity Reaction Status Date / Time No Known Allergies Allergy Verified 02/17/22 21:10 Review of Systems Review of Systems: Constitutional : No Fever, No Chills, No Fatigue ENT/Mouth : No sore throat, No Rhinorrhea Eyes: No Eye Pain, No Swelling, No Redness Cardiovascular : No Chest Pain, No SOB, No Dyspnea on Exertion Respiratory : No Cough, No Sputum Gastrointestinal : No Nausea, No Vomiting, No Diarrhea, No abdominal Pain Genitourinary : No Dysuria, No Urinary Frequency, No Hematuria, Musculoskeletal : No joint pain, No Myalgias, No Joint Swelling Skin : No Skin Lesions, No rash Neuro : No Weakness, No Numbness, No Dizziness, no Headache, pos seizure Psych : No Anxiety/Panic, No Depression Heme/Lymph: No Bruising, No Bleeding,No Lymphadenopathy Endocrine : No Polyuria, No Polydipsia All other systems reviewed and are negative [facility] Past Medical History Attestation statement: The following information was validated with the patient. Source: old records reviewed Medical History COVID-19 Depression Generalized seizure Family History Family History Mother Alcohol abuse Drug abuse and dependence Father Drug abuse and dependence Alcohol abuse Maternal Grandfather Cancer of unknown origin Paternal Grandmother Lung cancer Social History Social History Household Members: Family Housing: Apartment Do you presently have visiting nurse or other home services: No Alcohol intake: current Alcohol intake frequency: a few times a month Alcohol type: beer and hard liquor Patient Tobacco Use Status: Current everyday Tobacco user Cigarette Packs Per Day: 0.5 Cigarettes Per Day: 10.0 Years Smoked: 15 e-Cigarette/Vaping Use: Never Used Second Hand Smoke Exposure: No Substance Use Type: Marijuana Advance Directives: No Advance Directives Information Provided: Yes service: No Current occupational status: unemployed Physical Exam Vital Signs: Vital Signs: Last Vital Signs Temp 98.2 F 04/15/22 06:46 Pulse 65 04/15/22 08:51 Resp 16 04/15/22 08:51 BP 106/51 L 04/15/22 08:51 Pulse Ox 95 04/15/22 08:51 O2 Del Method 04/15/22 08:51 BMI result Body Mass Index 38.2 Appearance: Alert. Oriented X3 - slow to respond. No acute distress. Eyes: Pupils equal, round and reactive to light. ENT: Pharynx normal. atraumatic Neck: Normal inspection. Neck supple. CVS: Normal heart rate and rhythm. Pulses normal. Respiratory: No respiratory distress. Breath sounds normal. Abdomen: Soft and nontender. Skin: Skin warm and dry. Normal skin color. Normal skin turgor. Extremities: No lower extremity edema. No calf ttp Neuro: Oriented X 3 slow to respond. No motor deficit. No sensory deficit. Course Course Course Narrative: refusing all blood work will observe until at baseline stable for DC steady gait, GCS 15, tolerating PO, adult ride with her, at baseline MDM - Seizure MDM Narrative Medical decision making narrative: 40 yo female with hx of substance abuse, asthma, seizures, mental illness comes in after witnesed GTC seizure no headstrike she is more awake and alert and oriented no signs of head trauma, will obtain basic labs, observe, given versed then load with keppra and observe. discussed with the patient the importance of taking her keppra and she agrees to take it. Once improved will dc home on 500mg BID. Discharge Plan Discharge Clinical Impression: Generalized seizure Patient Disposition: Home, Self-Care Instructions: Recurrent Seizures in Adults (ED) Additional Instructions: return to ED for any worsening symptoms or concerns avoid alcohol please take your medication, no swimming alone, no cooking over open flame, you should not drive a car until cleared by your doctor Prescriptions: New levetiracetam [Keppra] 500 mg tablet 500 mg PO BID Qty: 60 0RF No Action amoxicillin-pot clavulanate 875-125 mg tablet 1 tab PO Q12H 10 Days Qty: 20 0RF ibuprofen 600 mg tablet 600 mg PO Q6H PRN (Reason: pain) Qty: 30 0RF levetiracetam [Keppra] 500 mg tablet 500 mg PO BID Qty: 60 0RF ibuprofen 600 mg tablet 600 mg PO Q8H PRN (Reason: pain) Qty: 14 0RF amoxicillin-pot clavulanate 875-125 mg tablet 1 tab PO BID Qty: 14 0RF Referrals: Antonieta Ansari MD [Primary Care Provider] - 1 week (1 week)
[2022-04-15 07:25] VITALS: BP 123/63; PULSE 61
[2022-04-15] MEDS: levETIRAcetam in NaCl (iso-os) 1,000 MG/100 ML PIGGYBACK 400 MG IV (07:27)
[2022-04-15] MEDS: Midazolam HCl/PF 2 MG/2 ML VIAL IVPUSH (07:31)
[2022-04-15] MEDS: 0.9 % Sodium Chloride 1,000 ML 999 ML IV (07:32)
--- NOTE | 2022-04-15 08:28 | PC.NURSE ---
Pt alert and somewhat disoriented. Pt knows where she is yet still is presenting with word salad. Respirations even and unlabored. Multiple attempts to redirect pt to keep arm straight for IV medications.
--- NOTE | 2022-04-15 08:37 | PC.NURSE ---
Pt refusing lab draw at this time
[2022-04-15 08:51] VITALS: BP 106/51; PULSE 65; RESP 16; O2SAT 95
== END 2022-04-15 09:24 | disposition home or self-care (01) ==
PROVIDERS: Emergency Provider Emergency Medicine; PCP Internal Medicine
DX: R56.9 Unspecified convulsions (principal); Z79.899 Other long term (current) drug therapy; F17.210 Nicotine dependence, cigarettes, uncomplicated; Z71.6 Tobacco abuse counseling
CPT/HCPCS: 99284; J1953; J2250

== ENCOUNTER 2024-02-12 18:17 | Emergency (ER) | payer OTHER, SELFPAY ==
[2024-02-12 18:33] VITALS: BP 121/72; PULSE 63; RESP 16; TEMP 36.5; O2SAT 98; BMI 34.3
--- NOTE | 2024-02-12 18:33 | ED_ITS ---
HPI - Skin/Abscess/Foreign Bdy General Chief complaint: Skin/Abscess/Foreign Body Stated complaint: abd abscess, left eye pain Source: patient Mode of arrival: ambulatory Limitations: no limitations History of Present Illness HPI narrative: Patient is a 33-year-old female who presents emergency department expressed concern for a right-sided abdominal abscess. She reports this onset was 2 weeks ago. She Keflex it from a friend 500 mg once or twice a day for 4 days, stop taking 2 days ago. Continues to have this area present. Also expresses concern for a stye to her left lateral eye, no vision changes. Related Data Previous Rx's ?Medication ?Instructions ?Recorded amoxicillin 875 mg-potassium 1 tab PO BID #14 tabs 02/17/22 clavulanate 125 mg tablet ibuprofen 600 mg tablet 600 mg PO Q8H PRN pain #14 tabs 02/17/22 amoxicillin 875 mg-potassium 1 tab PO Q12H 10 days #20 tabs 03/22/22 clavulanate 125 mg tablet ibuprofen 600 mg tablet 600 mg PO Q6H PRN pain #30 tabs 03/22/22 levetiracetam 500 mg tablet 500 mg PO BID #60 tabs 04/11/22 (Keppra) levetiracetam 500 mg tablet 500 mg PO BID #60 tabs 04/15/22 (Keppra) cephalexin 500 mg capsule 500 mg PO QID #28 caps 02/12/24 Allergies Allergy/AdvReac Type Severity Reaction Status Date / Time No Known Allergies Allergy Verified 02/12/24 18:36 Review of Systems Review of Systems: Yes all other systems are reviewed and are negative REPLACED BY [facility] Past Medical History Attestation statement: The following information was validated with the patient. Source: old records reviewed Medical History COVID-19 Depression Generalized seizure Family History Family History Mother Alcohol abuse Drug abuse and dependence Father Drug abuse and dependence Alcohol abuse Maternal Grandfather Cancer of unknown origin Paternal Grandmother Lung cancer Social History Social History Household Members: Family Housing: Apartment Do you presently have visiting nurse or other home services: No Alcohol intake: current Alcohol intake frequency: a few times a month Alcohol type: beer and hard liquor Patient Tobacco Use Status: Current everyday Tobacco user Cigarette Packs Per Day: 0.5 Cigarettes Per Day: 10.0 Years Smoked: 15 e-Cigarette/Vaping Use: Never Used Second Hand Smoke Exposure: No Substance Use Type: Marijuana service: No Current occupational status: unemployed Physical Exam Vital Signs: Appearance: Alert.?Oriented to person, place and time. No acute distress.?Normal affect. Eyes: Pupils equal, round and reactive to light.? EOMI. No nystagmus. Erythematous stye to left upper lateral lid ENT: Pharynx normal.?? Neck: Normal inspection.? Neck supple.?? CVS: Heart sounds normal. Normal heart rate and rhythm.? Pulses normal.?? Respiratory: No respiratory distress.? Lung sounds clear to auscultation bilaterally?? Abdomen: Soft and non-tender. Normoactive bowel sounds. Skin: Skin warm and dry.? Normal skin color.? Right lower abdomen with area of erythema proximally 2 cm in diameter, central induration no fluctuance? Extremities: No lower extremity edema.? Neuro: Moves all extremities spontaneously. Sensation intact bilaterally. Ambulates with normal steady gait. Course Course Course Narrative: This is an RME performed by Shae Euceda CNP: Additional HPI, ROS, PE not included below will be deferred to primary provider. Patient is a 33-year-old female who presents emergency department expressed concern for a right-sided abdominal abscess. Reports that her spouse is currently experiencing a groin to his abscess and she feels that it is contagious resulting in an abscess to her abdomen. She reports this onset was 2 weeks ago Medical Decision Making Medical Decision Making MDM Narrative: Patient is a 33-year-old female presents emergency concern for an abscess on her abdomen as well as a stye to her left eye. Overall she is well-appearing, nontoxic, afebrile. Small localized area of cellulitis to the abdomen does not appear to have any central fluctuance or area amenable to drainage at this time, a full course of cephalexin was sent to her pharmacy and advised to complete the entire course as prescribed. Warm moist compresses can be applied to the area. She does have a stye to the left upper eye, extraocular movements are intact, not consistent with periorbital or orbital cellulitis, we discussed conservative treatment. Advised outpatient follow-up with primary care provider. All questions answered. Stable for discharge Differential Diagnosis Differential Diagnoses: The differential diagnosis associated with the presentation includes (See narrative above) Independent Historian Clinical information obtained from an independent historian. History obtained f rom or confirmed by: Spouse External Record Review External record reviewed: Outpatient record Prescription Management I considered prescription management with: Antibiotic Discharge Plan Discharge Clinical Impression: Abdominal wall cellulitis, Hordeolum Patient Disposition: Home, Self-Care Instructions: Cellulitis (ED), Stye (ED) Prescriptions: New cephalexin 500 mg capsule 500 mg PO QID Qty: 28 0RF No Action amoxicillin-pot clavulanate 875-125 mg tablet 1 tab PO Q12H 10 Days Qty: 20 0RF ibuprofen 600 mg tablet 600 mg PO Q6H PRN (Reason: pain) Qty: 30 0RF levetiracetam [Keppra] 500 mg tablet 500 mg PO BID Qty: 60 0RF ibuprofen 600 mg tablet 600 mg PO Q8H PRN (Reason: pain) Qty: 14 0RF amoxicillin-pot clavulanate 875-125 mg tablet 1 tab PO BID Qty: 14 0RF levetiracetam [Keppra] 500 mg tablet 500 mg PO BID Qty: 60 0RF Referrals: Antonieta Ansari MD [Primary Care Provider] - Print Language: Norwegian
--- OUTSIDE RECORDS SUMMARY | 2024-02-12 18:40 | XMS_ITS | Continuity of Care Document ---
Author Organization [facility] ter Address [address] [place] [id number]- Care Team Providers Care Hose Tender Name Role Phone Not on Staff, PCP Primary Care Physician Unavail able [place] [facility] [place] [facility] [place]22 - 11/03/[address] [address]- Encounter Diagnosis Seizure(Final) - 11/03/22 Discharge Disposition: A-D/C Home Attending Physician: Nancy Cline MD Admitting Physician: Nancy Cline MD Referring Physician: Not on Staff, Referring MD Allergies, Adverse Reactions, Alerts No Known Allergies Medications Keppra 750 mg oral tablet 1 tablet = 750 mg, By Mouth, 2 times a day, # 14 tablet, 0 Refills, Maintenance, 11/03/22 3:53:00 EDT, Tablet, [facility], Partial fill upon patient request if the prescription is for aschedule II opioid drug., 160, cm, 11/02/22 23:08:0... Start Date: 11/03/22 Stop Date: 11/10/22 Status: Ordered Vital Signs Most recent to oldest [Reference Range]: 1 2 3 Height 160 cm (11/02/22 11:00 PM) Weight 95 kg (11/02/22 11:00 PM) Oxygen Saturation [94-100 %] 96 % (11/03/22 4:48 AM) 95 % (11/03/22 2:19 AM) 95 % (11/03/22 12:07 AM) Pulse Rate [55-90 bpm] 68 bpm (11/03/22 4:48 AM) 63 bpm (11/03/22 2:19 AM) 74 bpm (11/03/22 12:07 AM) Blood Pressure [90-138/55-84 mm Hg] 130/77mm Hg (11/03/22 4:48 AM) 124/94mm Hg (11/03/22 2:19 AM) 101/62mm Hg (11/03/22 1:26 AM) Respiratory Rate [16-30 br/min] 18 br/min (11/03/22 4:48 AM) 16 br/min (11/03/22 2:19 AM) 20 br/min (11/03/22 12:07 AM) Temperature [96.8-100.4 DegF] 98.2 DegF (11/02/22 11:00 PM) Liters per Minute 6 L/min (11/02/22 11:20 PM) 6 L/min (11/02/22 11:00 PM) Mode of Delivery (Oxygen) Room air (11/03/22 4:48 AM) Room air (11/03/22 2:19 AM) Room air (11/03/22 12:07 AM) Blood pressure sites Arm, right (11/03/22 4:48 AM) Arm, right (11/03/22 2:19 AM) Arm, right (11/03/22 12:07 AM) Temperature Route Oral (11/02/22 11:00 PM) Dry Weight 95 kg (11/02/22 11:00 PM) Weight Obtained Via Patient/family state d (11/02/22 11:00 PM) Dry Weight Obtained Via Patient/family s tated (11/02/22 11:00 PM) Note * Mary Beth Rodriguez DO: PERFORM, SIGN, VERIFY Event Display: Patient Education Handout Authored Date: [id number] * Mary Beth Rodriguez DO: PERFORM Event Display: Patient Education Leaflets Authored Date: [id number] Recurrent Seizure (Adult) ?? [id number] Recurrent Seizure (Adult) You have had another seizure today. A common cause of seizures that keep happening (recurrent seizures) is missing doses of seizure medicine. But sometimes seizures are hard to control even when you take the medicine correctly. If this is the case for you, your healthcare provider may need to increase your dosage. Or you may need to add or change to another medicine. Home care Follow these tips when caring for yourself at home. ??? Seizures aren???t predictable. So don't do anything that might cause danger to you or other people if you have another seizure. Until the seizures are under good control, take these safety steps:o Don???t drive, ride a motorcycle, or ride a bike. o Don???t operate dangerous equipment such as power tools. o Take showers instead of baths. o Don???t swim or climb ladders, trees, or roofs. ??? Tell your close friends and relatives about your seizure. Teach them what to do for you if it happensagain. ??? If medicine was prescribed to prevent seizures, take it exactly as directed. Missing doses will increase the risk of having another seizure. ??? If you miss a dose, take the missed dose assoon as you remember. If it's almost time for your next dose, skip the missed dose. Restart the medicine at your next scheduled time. Don???t take extra medicine to make up for the missed dose. ??? Wear a Medic-Alert bracelet to let emergency staff know about your condition. ??? Follow a regular sleep schedule so that you get at least 6 to 8 hours of restful sleep every night. This is especially important when you're sick with a cold or flu or another type of infection. ??? Alcohol and illegal drugs can cause you to have more seizures. Ask your provider if you are allowed to drink any alcohol at all. For future seizures, if you're alone: ??? If you feel a seizure coming on, lie down on a bed or on the floor with something soft under your head. This will keep you from falling. Lie on your left side, not on your back. This will let fluid drain out of your mouth and prevent choking. Be sure you are clear of any objects that might injure you during the seizure. Call for help if there is time. For future seizures, if someone is with you: ??? The person should help you get into a safe position and call for help. The person shouldn???t try to force anything in your mouth once the seizure begins. This could harm your teeth or jaw. ?? Follow-up care Follow up with your healthcare provider. Keep a seizure calendar to record how often you have a seizure. If you're being started on anti-seizure medicine, ask your provider if you need additional control. Seizure medicine can affect how well control pills work, and you could become . Some women who take seizure medicine also need certain vitamins. Tell your provider if you plan on getting or if you become . Don't drink alcohol until your provider tells you it???s OK. Each state has different laws that say when someone with seizures is allowed to drive. Some states require that a seizure disorder to be reported to the state. They don't allow you to drive until your seizures are controlled. Talk with your provider to see if this applies to you. ?? Important Don't drive until you've followed up with your healthcare provider and you've been cleared to drive. ?? When to get medical care Call your healthcare provider right away??if any of these occur: ??? Seizures happen more often or last longer than normal ??? A seizure lasts more than 5 minutes ??? You don???t wake up between seizures ??? Confusion that lasts more than 30 minutes after a seizure ??? Injury during a seizure ??? Fever of 100.4??F (38.0??C) or higher, or as advised by your provider ??? Unusual grouchiness, drowsiness, or confusion ??? Stiff or painful neck ??? Headache that gets worse? Last Reviewed Date: 2021 ?? [id number] [employer]. All rights reserved. This information is not intended as a substitute for professional medical care. Always follow your healthcare professional's instructions. ?? Patient Care team information Care Team Personnel Name: Not on Staff, PCP Position: [facility] Physician (General Medicine) Member Role: PCP Name: Holli Calvert Position: [facility] ED RN W/OE and Tasks Member Role: Patient Care Provider Name: Debbie Paulino Position: [facility] ED RN W/OE and Tasks Member Role: Patient Care Provider Name: Mary Beth Rodriguez DO Position: [facility] Resident Member Role: ED Resident Address: Address: [address] [place] [address] Name: Nancy Cline MD Position: [facility] ED Medicine MD Member Role: Admitting Physician Address: Address: [address] [place] [address] Name: Mirna Cesar Position: [facility]
== END 2024-02-12 18:40 | disposition home or self-care (01) ==
PROVIDERS: Emergency Provider Emergency Medicine Emergency Medical Services; PCP Internal Medicine
DX: L03.311 Cellulitis of abdominal wall (principal); H00.014 Hordeolum externum left upper eyelid
CPT/HCPCS: 99281; 99283

== ENCOUNTER 2025-05-07 08:28 | Outpatient (REF) | payer OTHER, SELFPAY ==
[2025-05-07 10:27] LABS: Syphilis Screen Nonreactive (Nonreactive)
[2025-05-07 10:43] LABS: Folate 3.3 ng/mL (> or = 4.0); Vitamin B12 541 pg/mL (200-900)
[2025-05-08 06:02] LABS: Lyme Abs Screen <0.90 index
== END 2025-05-07 08:29 | disposition home or self-care (01) ==
LOC: HO.LAB 08:28
PROVIDERS: PCP Internal Medicine; Visit Provider Psychiatry & Neurology Neurology
DX: G40.309 Generalized idiopathic epilepsy and epileptic syndromes, not intractable, without status epilepticus (principal); G31.84 Mild cognitive impairment of uncertain or unknown etiology; Z01.84 Encounter for antibody response examination; Z79.899 Other long term (current) drug therapy; F12.90 Cannabis use, unspecified, uncomplicated
CPT/HCPCS: 36415; 82607; 82746; 86617; 86618; 86780; 99212

== ENCOUNTER 2025-05-07 08:28 | Outpatient (AMB) | payer OTHER, SELFPAY ==
--- OUTSIDE RECORDS SUMMARY | 2025-05-07 08:41 | XMS_ITS | Encounter Summary ---
Author Organization [facility] Address [address] [place] [phone] Phone Care Team Providers Care Maintenance Mechanic Supervisor Name Role Phone Unavailable Primary Care Provider Unavailabl e Encounter Details Date Type Department Care Team (Late st Contact Info) Description 04/23/2011 Documentation [facility] [place] [facility] [place], [place] [phone] Family Medicine, Physician [address] [place], [place] [id number] Social History Tobacco Use Types Packs/Day Years Used Date Smoking Tobacco: Never Assessed Comments Unknown Sex and Gender Information Value Date Recorded Sex Assigned at Not on file Legal Sex Female 4:28 PM EDT Gender Identity Not on file Sexual Orientation Not on file documented as of this encounter Plan of Treatment Not on file documented as of this encounter Visit Diagnoses Not on filedocumented in this encounter
--- OUTSIDE RECORDS SUMMARY | 2025-05-07 08:41 | XMS_ITS ---
Author Name [facility] Organization Unknown Care Team Organization Name Specialty Phone Email Start Date End Da te [facility] Antonieta Ansari Primary Care 08/19/2022 01/31/2024 [facility] Brigida Fraser Primary Care 04/21/2022
--- OUTSIDE RECORDS SUMMARY | 2025-05-07 08:41 | XMS_ITS | Encounter Summary ---
Author Organization [facility] Address [address] [place] [address] Care Team Providers Care Dependency Program Director Name Role Phone Antonieta Cavazos MD Primary Care Prov ider Encounter Details Date Type Department Care Team ([facility] [address] Contact Info) Description 11/08/2024 Referral Triage [facility] [address] [place] [phone] Pepe Verduzco Social History Tobacco Use Types Packs/Day Years Used Date Smoking Tobacco: Every Day Smokeless Tobacco: Never Alcohol Use Standard Drinks/Week Comments Not Currently 0 (1 standard drink = 0.6 oz pur e alcohol) Housing Instability Answer Date Recorde d Are you worried that in the next 2 months you may not have stable housing? No 11/01/2024 Food Access & Nutrition Answer Date Rec orded Do you have access to a vari ety of food including fruits and vegetables? Yes 11/01/2024 Access to Healthcare Answer Date Record ed Within the last 3 months, ho w many times did you visit the emergency department for your medical care? 0 11/01/2024 Health Literacy Answer Date Recorded How often do you need to hav e someone help you when you read instructions, pamphlets, or other written material from your doctor or pharmacy? Never 11/01/2024 Caregiver: How often do you need to have someone help you when you read instructions, pamphlets, or other written material from your doctor or pharmacy? Not on file 11/01/2024 Financial Risk Answer Date Recorded How hard is it for you to pa y for the very basics like food, housing, medical care, and air conditioning / heating? Not very hard 11/01/2024 Transportation Answer Date Recorded Has the lack of transportati on kept you from meetings, work, or from getting things needed for daily living? No Has the lack of transportati on kept you from medical appointments or from getting medications? No 11/01/2024 Social Isolation Answer Date Recorded How often do you feel lonely or isolated from th ose around you? Never 11/01/2024 Food Risk Answer Date Recorded Within the past 12 months we worried whether our food would run out before we got money to buy more. Never true 11/01/2024 Within the past 12 months th e food we bought just didn't last and we didn't have money to get more. Never true 11/01/2024 Dependent Care Answer Date Recorded Do you need help finding or paying for care for your loved ones. For example, child welfare director or elderly care for an older adult? No 11/01/2024 Education Answer Date Recorded Do you think completing more education or training, like finishing a GED, going to college, or learning a trade, would be helpful for you? No 11/01/2024 Employment and Income Answer Date Recor ded During the last four weeks, have you been actively looking for work? No 11/01/2024 Living Situation Answer Date Recorded What is your living situation? Unrecognized valu e 11/01/2024 Comments No Sex and Gender Information Value Date Recorded Sex Assigned at Not on file Legal Sex Female 5:27 PM EST Gender Identity Not on file Sexual Orientation Not on file documented as of this encounter Progress Notes * Pepe Verduzco - 11/08/2024 12:57 PM EDT Referral triage: Assigned to Jessi (LIZZ) Reason for referral: In need of financial assistance program. Jessi, this pt has a negative screening. Can you just follow up with her to see if anything has changed in the past week when she had her screening done? Pepe Verduzco Community Health Worker (CHW) Front Office Clerk/Regional documented in this encounter Plan of Treatment Not on file documented as of this encounter Visit Diagnoses Not on filedocumented in this encounter Additional Health Concerns Assessment Noted Time PHQ-9 Depression Total Score: 0 11/02/19 2:22 PM EDT documented as of this encounter Care Teams Dependency Program Director Relationship Specialty Start Date End Date Antonieta Cavazos MD [address] [place] [phone] PCP - General Internal Medicine 05/08/24 documented as of this encounter
--- OUTSIDE RECORDS SUMMARY | 2025-05-07 08:41 | XMS_ITS | Encounter Summary ---
Author Organization [facility] Address [address] [place] [phone] Phone Care Team Providers Care Priming Powder Premix Blender Name Role Phone Unavailable Primary Care Provider Unavailabl e Encounter Details Date Type Department Care Team (Late st Contact Info) Description 01/28/2017 Conversion Encounter [facility] - [address] [address] Social History Tobacco Use Types Packs/Day Years [...]
--- OUTSIDE RECORDS SUMMARY | 2025-05-07 08:41 | XMS_ITS | Encounter Summary ---
Author Organization [facility] Address [address] [place] [phone] Phone Care Team Providers Care Silver Spray Worker Name Role Phone Unavailable Primary Care Provider Unavailabl e Encounter Details Date Type Department Care Team (Late st Contact Info) Description 04/27/2011 Documentation [facility] [place] [facility] [place], [place] [phone] Family Medicine, Physician [facility] [place], [place] [phone] Social History Tobacco Use Types Packs/Day Years [...]
--- OUTSIDE RECORDS SUMMARY | 2025-05-07 08:41 | XMS_ITS | Clinical Summary ---
Author Organization [facility] Address [address] [place] [address] Phone Care Team Providers Care Patient Centered Care Specialist Name Role Phone Antonieta Cavazos MD Primary Care Prov ider Allergies No known active allergies Medications levETIRAcetam (KEPPRA) 750 mg tablet Take 1 Tablet by mouth 2 times daily. Active ibuprofen (ADVIL,MOTRIN) 600 mg tablet Take 1 Tablet by mouth every 6 hours as needed for Pain. 4 Active UNABLE TO FIND by intrauterine route. IUD'S IU Active nicotine (NICODERM CQ) 7 mg/[address] 1 patch on the skin 1 (one) time each day at the same time. 30 each 5 Active Active Problems Problem Noted Date Diagnosed Date Class 1 obesity 11/01/2024 Epilepsy, grand mal (CMS/HCC V24, CMS/HCC V28) 0 11/01/2024 Overview (11/01/2024): Follows with Dr. Conroy at [place]. Last seizure 08/2024 Depression affecting pregnan cy in third trimester, antepartum 10/17/2021 Overview (05/05/2024): Results of [place] Depression Scale (EPDS) Question #10. In the past 7 days, the thought of harming myself has occurred to me: Sometimes EDPS Score: 23 EDPS Interpretation (Maximum Score:30): Positive response to question #10 is a positive screen. 10/17/2021 patient declines list of therapist in area however she desires medication management for depression. Zoloft started, however patient reports she may conside this for . Last Assessment & Plan: Currently overall well controlled. Ok to restart Zoloft to prevent recurrence of sx. Positive GBS test 10/13/2021 Marijuana use 07/30/2021 Overview (05/05/2024): 07/30- Pos MJ 10/17/21 negative Last Assessment & Plan: Denies marijuana use. Repeat UDS ordered UTI in 05/22/2021 Overview (05/05/2024): 05/22/2021- [facility], got treated with Abx 1-2 weeks ago DEREK negative 07/29/21 History of COVID-19 05/22/2021 Overview (11/01/2024): 04/27/2021- Tested positive, very vague symptoms small cough COVID in *Asymptomatic: No testing or intervention *Mildly symptomatic (signs or sx without SOB or abnormal imaging) OR Moderately symptomatic (lower respiratory disease by clinical or imaging assessment AND O2 sat >93% RA): 81 mg ASA daily at diagnosis, growth 4-6 weeks after COVID or 32 weeks, whichever is later. No other surveillance. *Severely symptomatic (RR>30, O2 sat <93% RA, FiO2 <300) OR Critical (respiratory failure, septic shock and/or MOSD): Transfer to [facility] if not in active labor. Once discharged, 81 mg ASA daily at diagnosis, growth 4-6 weeks after COVID or 32 weeks, whichever is later. If diagnosed after 32 weeks, NST weekly x 2 weeks only. No further surveillance. *If the patient has COVID at the time of their survey (level 1 or 2), reschedule 2 weeks later. *: Stop ASA with delivery and no need to initiate ASA in newly diagnosed COVID patients in labor. Patients with severe/critical COVID-19 in the period should receive Lovenox prophylaxis with usual dosing regimen ONLY while inpatient. Can be discontinued on discharge. Last Assessment & Plan: Taking ASA Obesity affecting 04/18/2021 Overview (05/05/2024): BMI 39.05 HgbA1C at initial labs- 5.2 One hour GTT in first trimester- 59 Repeat GTT 24-28 weeks if early is normal - 72 Level 2 Survey (at [facility] for BMI >40) Refer to nutrition for BMI >40 Growth US at 32 and 36 weeks for for BMI >40 Anesthesia consult for pre- BMI >45 or >50 lb weight gain DVT prophylaxis- Lovenox if CS and BMI >35 Last Assessment & Plan: EFW 14%ile at 36 weeks Encounters Date Type Department Care Team Description 02/16/2025 Telephone Adult Medicine [address] [id number] Antonieta Cavazos MD from Last 3 Months Immunizations Immunization Administration Dates Next Due DTP 01/22/1996, 3,10/22/1991,09/21,02/07/1991 HPV, Quadrivalent 06/03/2007,01/25/2007,11/05/19 07 Hepatitis B Pediatric (Enger ix B; Recombivax HB) to less than 20 yo 01/22/1996,06/23/1995,04/23/1995 HiB PRP-T conjugate (Acthib, Hiberix) 6wks and older 09/21/1992,10/22/1991,09/22/1991,02/07 IPV Inactivated polio (Ipol) 6wks and older 01/22/1996,09/21/1992,09/22/1991,02/07 Influenza Quadravalent, MDCK , 0.5ml, preservative free (Flucelvax) 6mo and older 03/06/2022 MMR, measles mumps and rubel la Live (Priorix; M-M-R II) 12mo and older 01/22/1996,09/21/1992 Meningococcal MCV4P 09/20/2008 Td Tetanus diptheria (Tdvax) 7yo and older 08/24/2002 Tdap Tetanus diptheria acell ular pertussis (Boostrix; Adacel) 7yo and older 09/15/2021,02/10/2018,09/20/2008 Surgical History Surgery Date Site/Laterality Comments OTHER SURGICAL HISTORY PROCEDURE: MO UNLISTED LAPAROSCOPY PROCEDURE STOMACH; COMMENT: at age 11 years had injury with pencil in abdomen and had to have it surgically removed Medical History Medical History Date Comments Smoker DX:Smoker; COMME NT: is weaning off during Marijuana smoker DX:Marijuana sm oker; COMMENT: stopped with + preg test Obesity in DX:Obesity in Family History Medical History Relation Name Comments Alcohol/Drug Brother Alcohol/Drug Father Other: heart attack Maternal Grandfather Alcohol/Drug Mother Alcohol/Drug Sister Breast cancer Neg Hx Ovarian cancer Neg Hx Uterine cancer Neg Hx Relation Name Status Comments Brother Alive Father Maternal Grandfather Maternal Grandmother Mother Paternal Grandfather Alive Paternal Grandmother Alive Sister Alive Social History Tobacco Use Types Packs/Day Years Used Date Smoking Tobacco: Every Day Smokeless Tobacco: Never Tobacco Cessation:Ready to Q uit: Not Asked; Counseling Given: Not Answered Alcohol Use Standard Drinks/Week Comments Not Currently [...] care for your loved ones. For example, childhood development teacher or elderly care for an older adult? [...] on file Sexual Orientation Not on file Obstetrics History Last Filed Vital Signs Vital Sign Reading Time Taken Comments Blood Pressure 103/69 11/01/2024 2:22 PM EDT Pulse 69 11/01/2024 2:22 PM EDT Temperature 36.2 C (97.1 F) 11/01/2024 2:22 PM EDT Respiratory Rate 15 11/01/2024 2:22 PM EDT Oxygen Saturation 97% 11/01/2024 2:22 PM EDT Inhaled Oxygen Concentration - - Weight 94.3 kg (207 lb 12.8 oz) 11/01/2024 2:22 PM EDT Height 165.1 cm (5' 5 ) 11/01/2024 2:22 PM EDT Body Mass Index 34.58 11/01/2024 2:22 PM EDT Plan of Treatment Health Maintenance Due Date Last Done Comments Medicare Annual Wellness Visit 05/24/2022 Cervical Cancer Screening: HPV 04/09/2024 04/09/2021 Influenza Vaccine (#1) 2025 03/06/2022 Social Influencers of Health Screening 11/01/2025 11/01/2024 Cholesterol Screening (Lipid Panel) 11/16/2029 11/16/2024, 06/17/2023 DTaP,Tdap,and Td Vaccines (10 - Td or Tdap) 09/16/2031 09/15/2021, 02/10/2018, 09/20/2008, Additional history exists RSV Immunization Adult Patients (1 - 1-dose 75+ series) 2065 HIB Vaccines Completed 09/21/1992, 10/12, 09/22/1991, Additional history exists Hepatitis B Vaccines Completed 01/22/1996, 06/23/1995, 04/23/1995 IPV Vaccines Completed 01/22/1996, 09/12, 09/22/1991, Additional history exists MMR Vaccines Completed 01/22/1996, 09/21/1992 HPV Vaccines Completed 06/03/2007, 01/12, 11/04/2006 Meningococcal ACWY Vaccine Completed 09/20/2008 Depression Screening Completed 11/01/2024, 06/17/19 24 HIV Screening Completed 11/16/2024, 05/22/2021 Hepatitis C Screening Completed 11/16/2024, 021 COVID-19 Vaccine Discontinued Hepatitis A Vaccines Aged Out No long er eligible based on patient's age to complete this topic Meningococcal B Vaccine Aged Out No l onger eligible based on patient's age to complete this topic Pneumococcal Vaccine: Pediatrics (0 to 5 Years) and At-Risk Patients (6 to 49 Years) Discontinued RSV Immunization Patients Under 20 months Aged Out No longer eligible based on patient's age to complete this topic Varicella Vaccines Aged Out No longer eligible based on patient's age to complete this topic Procedures Procedure Name Priority Date/Time Associated Diagnosis Comments HEPATITIS C ANTIBODY Routine 11/16/2024 9:33 AM EDT Screen for STD (sexually transmitted disease) HIV 1, 2 ANTIBODY, P24 ANTIGEN WITH REFLEX TO DIFFERENTIATION Routine 11/16/2024 9:33 AM EDT Screen for STD (sexually transmitted disease) LIPID PANEL WITH REFLEX TO DIRECT LDL Routine 11/16/2024 9:33 AM EDT Screening for cardiovascular condition HM DEPRESSION SCREENING Routine 06/17/2023 HM HPV Routine 04/09/2021 from Last 3 Months or Most Recently Relevant to Health Maintenance Results * Hepatitis C antibody (11/16/2024 9:33 AM EDT) Pathologist [facility] Hepatitis C Antibody Negative Negative LAB CHEMISTRY METHOD 11/16/2024 3:10 PM EDT [facility] Blood Venous blood specimen / Unknown Venipuncture / Unknown 11/16/2024 9:33 AM EDT 11/16/2024 9:33 AM EDT us Yadira POND LAB BLOOD ORDERABLES Final Resu lt Performing Organization Address [facility]/ZIP Co de Phone Number [facility] [address] [place] [address], [place] [phone] * HIV 1,2 antibody, p24 antigen with reflex to differentiation (11/16/2024 9:33 AM EDT) [facility] HIV Combo AB/AG Negative Negative LAB CHEMISTRY METHOD 11/16/2024 3:11 PM EDT [facility] Blood Venous blood specimen / Unknown Venipuncture / Unknown 11/16/2024 9:33 AM EDT 11/16/2024 9:33 AM EDT Narrative [facility] - 11/16/2024 3:11 PM EDT This assay is a 4th generation assay allowing for earlier detection of HIV infection by detecting the presence of the HIV-1 p24 antigen as well as the traditional antibodies to HIV type 1 (including group O) and type 2. Use of a 4th generation assay is the current CDC recommendation for HIV screening. us Yadira POND LAB BLOOD ORDERABLES Final Resu lt Performing Organization Address [facility]/ZIP Co de Phone Number [facility] [address] [place] [address], [place] [phone] * (ABNORMAL) Lipid panel with reflex to direct LDL (11/16/2024 9:33 AM EDT) Cholesterol 191 0 - 200 mg/dL LAB CHEMISTRY METHOD 11/16/2024 12:52 PM EDT [facility] Triglycerides 57 0 - 150 mg/dL LAB CHEMISTRY METHOD 11/16/2024 12:52 PM EDT [facility] HDL 57 >=40 mg/dL LAB CHEMISTRY METHOD 11/16/2024 12:52 PM EDT [facility] LDL Calculated 123(H) 0 - 100 mg/dL LAB CHEMISTRY METHOD 11/16/2024 12:52 PM EDT [facility] VLDL Cholesterol Nils 11.4 mg/dL LAB CHEMISTRY METHOD 11/16/2024 12:52 PM EDT [facility] Non HDL Chol. (LDL+VLDL) 134 <145 mg/dL LAB CHEMISTRY METHOD 11/16/2024 12:52 PM EDT [facility] Chol/HDL Ratio 3.4 0.0 - 4.4 LAB CHEMISTRY METHOD 11/16/2024 12:52 PM EDT [facility] Blood Venous blood specimen / Unknown Venipuncture / Unknown 11/16/2024 9:33 AM EDT 11/16/2024 9:33 AM EDT Yadira POND LAB BLOOD ORDERABLES Final Resu lt [facility] [address] [place] [address], * Depression Screening (06/17/2023) Depression Screening Abstracted Historical Provider HEALTH MAINTENANCE Final Result * Cervical Cancer Screening: HPV (04/09/2021) Pathologist [facility] Cervical Cancer Screening: HPV Abstracted, Negative Historical Provider HEALTH MAINTENANCE Final Result from Last 3 Months or Most Recently Relevant to Health Maintenance Insurance MEDICA[place] [employer] MEDICARE ADVANTAGE Care Teams Patient Centered Care Specialist Relationship Specialty Start Date End Date Antonieta Cavazos MD [address] [place] [address] PCP - General Internal Medicine 05/08/24
--- OUTSIDE RECORDS SUMMARY | 2025-05-07 08:41 | XMS_ITS | Clinical Summary ---
Author Organization [facility] Address [address] [place] [id number] Phone Care Team Providers Care Buckram Sewer Name Role Phone Pcp, Unknown Primary Care Provider Unavailabl e Allergies No known active allergies Medications levETIRAcetam (KEPPRA) 500 MG tablet Take by mouth 2 (two) times a day. Active therapeutic multivitamin tablet Take 1 tablet by mouth daily. Active oxyCODONE 5 MG immediate release tablet Take 1 tablet (5 mg total) by mouth every 8 (eight) hours as needed. Partial fill ok 10 tablet 3 Active amoxicillin-clav ulanate (AUGMENTIN) 875-125 mg per tablet Take 1 tablet (875 mg of amoxicillin total) by mouth 2 (two) times a day. 7 tablet 3 Active Social History Tobacco Use Types Packs/Day Years Used Date Smoking Tobacco: Never Assessed Education Answer Date Recorded Are you interested in more education? Not on ludwig e 10/10/2022 Are you concerned about learning? Not on file 10/10/2022 No 10/10/2022 No 10/10/2022 Digital Access Answer Date Recorded No 11/10/2022 No 11/10/2022 Reliable internet access at home? Not on file 11/10/2022 Device with a working camera? Not on file Intimate Partner Violence Answer Date R ecorded Are you denied basic needs s uch as food, clothing, or medical care? No 06/22/2022 In the past 12 months have y ou been in a relationship with a person who hurts, threatens, or tries to control you? No 06/22/2022 Are you denied basic needs s uch as food, clothing, or medical care? No 06/22/2022 In the past 12 months have y ou been in a relationship with a person who hurts, threatens, or tries to control you? No 06/22/2022 Comments No Sex and Gender Information Value Date Recorded Sex Assigned at Female 06/22/2022 6:21 PM EST Legal Sex Female 5:12 PM EST Gender Identity Female 06/22/2022 6:21 PM EST Sexual Orientation Straight 06/22/2022 6: 21 PM EST Last Filed Vital Signs Vital Sign Reading Time Taken Comments Blood Pressure 133/85 06/22/2022 6:17 PM EST Pulse 66 06/22/2022 6:17 PM EST Temperature 37 C (98.6 F) 06/22/2022 6:17 PM EST Respiratory Rate 20 06/22/2022 10:01 PM EST Oxygen Saturation 98% 06/22/2022 6:17 PM EST Inhaled Oxygen Concentration - - Weight 98 kg (216 lb) 06/22/2022 6:17 PM EST Height 165.1 cm (5' 5 ) 06/22/2022 6:17 PM EST Body Mass Index 35.94 06/22/2022 6:17 PM EST Plan of Treatment Not on file Medical Devices Not on file Insurance [address] [place], [place] [address] [address] [place], [place] [address] Search [employer] [place] [address] [place] [address] [employer] [facility] [employer] Care Teams Buckram Sewer Relationship Specialty Start Date End Date Pcp, Unknown PCP - General 06/22/22 Additional Source Comments The information contained in this document represents components of the legal health record. It is not the complete legal health record.[facility]
--- OUTSIDE RECORDS SUMMARY | 2025-05-07 08:41 | XMS_ITS ---
Author Organization [facility] Address [address] [place] [address] Phone Care Team Providers Care Churn Operator Name Role Phone Antonieta Cavazos MD Primary Care Prov ider [facility] - Health Insurance Status:Ongoing (Active) Start date:11/13/2024 Enrollment date:11/13/2024 Related program episode:Community Health Worker Program (Active) Overview Health Insurance service of Community Health Worker Program Case Team Name Relationship Phone Jessi Mckeon(Responsible Staff) Community Hea lth Worker Continued Care and Services Coordination
--- OUTSIDE RECORDS SUMMARY | 2025-05-07 08:41 | XMS_ITS | Clinical Summary ---
Author Organization [facility] Address [address] [place] [id number] Phone Care Team Providers Care Hardware Assembler Name Role Phone Unavailable Primary Care Provider Unavailabl e Immunizations Immunization Administration Dates Next Due DTP 01/22/1996, 3,10/22/1991,09/21,02/07/1991 HPV, Quadrivalent 06/03/2007,01/25/2007,11/05/19 07 Hep B, ped/adol 01/22/1996,06/23/1995,04/23/1995 Hib (PRP-T) 09/21/1992, 2,09/22/1991,02/07 IPV 01/22/1996, 3,09/22/1991,02/07 MMR 01/22/1996,09/21/1992 Meningococcal Conj (Menactra) MCV4P 09/20/2008 Td (adult) (MBL), 2 Lf tetan us toxoid, PF, adsorbed 08/24/2002 Tdap 09/20/2008 Social History Tobacco Use Types Packs/Day Years Used Date Smoking Tobacco: Never Assessed Comments Unknown Sex and Gender Information Value Date Recorded Sex Assigned at Not on file Legal Sex Female 4:28 PM EDT Gender Identity Not on file Sexual Orientation Not on file Last Filed Vital Signs Vital Sign Reading Time Taken Comments Blood Pressure - - Pulse - - Temperature 36.6 C (97.8 F) 08/29/2009 12:00 AM EDT Respiratory Rate - - Oxygen Saturation - - Inhaled Oxygen Concentration - - Weight 86.2 kg (190 lb) 08/29/2009 12:00 AM EDT Height - - Body Mass Index - - Plan of Treatment Health Maintenance Due Date Last Done Comments Varicella Vaccines (1 of 2 - 13+ 2-dose series) 12/08/2003 DTaP,Tdap,and Td Vaccines (7 - Td or Tdap) 09/20/2018 09/20/2008, 08/24/2002, 01/22/1996, Additional history exists Influenza Vaccines (#1) 2025 COVID-19 Vaccine (2024- season) 2025 HIB Vaccines Completed 09/21/1992, 10/12, 09/22/1991, Additional history exists Hepatitis B Vaccines Completed 01/22/1996, 06/23/1995, 04/23/1995 IPV Vaccines Completed 01/22/1996, 09/12, 09/22/1991, Additional history exists MMR Vaccines Completed 01/22/1996, 09/21/1992 HPV Vaccines Completed 06/03/2007, 01/12, 11/04/2006 Meningococcal Vaccine Completed 09/20/2008 Hepatitis A Vaccines Aged Out No long er eligible based on patient's age to complete this topic Men B Vaccine Aged Out No longer elig ible based on patient's age to complete this topic Pneumococcal Vaccine Aged Out No long er eligible based on patient's age to complete this topic
--- OUTSIDE RECORDS SUMMARY | 2025-05-07 08:41 | XMS_ITS ---
Author Organization [facility] Address [address] [place] [address] Phone Care Team Providers Care Roll Icer Name Role Phone Antonieta Cavazos MD Primary Care Prov ider Community Health Worker Program Status:Ongoing (Active) Start date:11/08/2024 Enrollment date:11/13/2024 Enrollment reason:Referred from clinic Related service episodes:[facility] - Health Insurance (Active) Overview Community Health Worker Program Case Team Name Relationship Phone Jessi Mckeon(Responsible Staff) Community Hea lth Worker Continued Care and Services Coordination
--- NOTE | 2025-05-07 08:59 | MHC.OFFVIS ---
Intake Visit Reasons: follow up Allergies No Known Allergies Allergy (Verified 02/12/24 18:36) HPI Comments Details: 34 years old woman with polydrug abuse including alcohol, marijuana and cocaine. She came to hospital in 2021 with confusion and had generalized convulsions. Since then she had reported generalized convulsion or seizures happening during sleep. She is presenting with memory problems. The patient has a history of seizures, which occur at night during sleep, with the last episode reported to be about three months ago. The patient is prescribed levetiracetam 750 mg twice a day for seizure management and has been taking it regularly, but reports that the medication greatly affects memory, especially when taking both daily doses. The patient was previously prescribed vitamin B6 for memory issues and reported it helped a little, but has since run out and cannot afford to buy more. The patient denies any alcohol use. [facility] Medical History COVID-19 Depression Generalized seizure Family History Mother Alcohol abuse Drug abuse and dependence Father Drug abuse and dependence Alcohol abuse Maternal Grandfather Cancer of unknown origin Paternal Grandmother Lung cancer Social History Household Members: Family Housing: Apartment Do you presently have visiting nurse or other home services: No Alcohol intake: current Alcohol intake frequency: a few times a month Alcohol type: beer and hard liquor Patient Tobacco Use Status: Current everyday Tobacco user Cigarette Packs Per Day: 0.5 Cigarettes Per Day: 10.0 Years Smoked: 15 e-Cigarette/Vaping Use: Never Used Second Hand Smoke Exposure: No Substance Use Type: Marijuana service: No Current occupational status: unemployed Review of Systems Narrative - Neurological: Reports significant memory impairment and difficulty remembering to take medication. - Reports a history of seizures, which occur during sleep, with no recent events. Physical Exam Neuro Other: Mental Status: Alert and oriented to person, place, and time. Normal attention. Normal spontaneous speech, fluency, and comprehension. Affect is anxious. Cranial Nerves: CN II: Visual gama full to confrontation, visual acuity intact. CN III, IV, : Pupils equal, round, reactive to light and accommodation. Extraocular movements are normal. CN V: Facial sensation is normal. CN VII: Facial movements symmetrical. CN VIII: Hearing intact to bedside conversation is normal. CN IX, X: Palate elevates symmetrically. CN XI: Shoulder shrug and head turn symmetrical. CN XII: Tongue midline without atrophy or fasciculations. Extrapyramidal: Full facial expressions and blinking. No rigidity. Movements are appropriate with no tremor or abnormality. Speech: Normal; no dysarthria or tremor. Assessment & Plan Assessment & Plan (1) MCI (mild cognitive impairment): Code(s): G31.84 - Mild cognitive impairment of uncertain or unknown etiology Category: Medical (2) Generalized seizure disorder: Comment: CT brain WO at [facility] in Mar 2022:WNL EEG at off in May 2022: WNL Amb EEG at [facility] in Jun 2022: Abn. Bitemp sharps, One gen seizure was noted. Code(s): G40.309 - Generalized idiopathic epilepsy and epileptic syndromes, not intractable, without status epilepticus Category: Medical Plan Impression: 1. Generalized seizure disorder 2. Mild cognitive impairment with multifactorial etiology, neurological +psychological Recommendations: 1. Levetiracetam 750 mg twice a day 2. Labs to rule out treatable causes of memory problems 3. Folic acid 1 mg a day Orders: Orders Vitamin B12 and Folate Today G31.84 - Mild cognitive impairment of uncertain or unknown etiology Lyme IgG/IgM w/reflex to WB Today G31.84 - Mild cognitive impairment of uncertain or unknown etiology Syphilis Screen Today G31.84 - Mild cognitive impairment of uncertain or unknown etiology Medications: New folic acid 1 mg PO DAILY 90 tabs 1RF levetiracetam 750 mg PO BID 180 tabs 1RF Discontinued levetiracetam (Keppra) Discontinued Reason: Doctor's Order 500 mg PO BID 60 tabs 0RF levetiracetam (Keppra) Discontinued Reason: Doctor's Order 500 mg PO BID 60 tabs 0RF Coding Level of Care Code Est Pt Level 3 (37420) Diagnoses MCI (mild cognitive impairment) G31.84 Generalized seizure disorder G40.309
== END 2025-05-07 09:16 | disposition home or self-care (01) ==
LOC: HO.HSM 08:28
PROVIDERS: PCP Internal Medicine; Visit Provider Psychiatry & Neurology Neurology
DX: G31.84 Mild cognitive impairment of uncertain or unknown etiology (principal); G40.309 Generalized idiopathic epilepsy and epileptic syndromes, not intractable, without status epilepticus
CPT/HCPCS: 99213